=== PATIENT | female | born 1950 | race Caucasian/White ===

== ENCOUNTER → 2023-06-28 10:25 | Outpatient (REF) | payer OTHER, SELFPAY | LOC: RAD 10:25 | PROVIDERS: ATTENDING PHYSICIAN Urology; FAMILY PHYSICIAN Physician Assistant | DX: N20.0 Calculus of kidney (principal); R10.9 Unspecified abdominal pain | CPT/HCPCS: 74176 ==

== ENCOUNTER 2024-09-24 06:08 | Day surgery (SDC) | payer OTHER, SELFPAY ==
[2024-09-24] VITALS (11 sets, daily range): BP systolic 119–156; BP diastolic 64–87; BMI 34.9
[2024-09-24] MEDS: LOW STRENGTH ASPIRIN 324 MG PO (06:54)
[2024-09-24 07:00] LABS: Hematocrit 37.9 % (37.0-47.0); Hemoglobin 12.5 g/dL (12.0-16.0); Mean Corp Hgb Conc. 33.0 g/dL (33.0-37.0); Mean Corpuscular Volume 92.2 fL (81.0-99.0); Platelet Count 195 10^3/uL (130-400); Red Cell Dist. Width 13.0 % (11.5-14.5)
[2024-09-24 07:34] LABS: Blood Urea Nitrogen 16 mg/dl (7-17); Calcium 9.2 mg/dl (8.4-10.2); Carbon Dioxide 26 mmol/L (22-30); Chloride 109 mmol/L (98-107); Estimated Creatinine Clearance 84 ml/min; Glucose 118 mg/dl (70-99); Potassium 4.6 mmol/L (3.5-5.1); Sodium 141 mmol/L (135-145); eGFR > 60.00
--- NOTE | 2024-09-24 08:05 | ITS.CL.CATH ---
Digital Analyst - Catheterization
Cardiac Catheterization
Procedure Report:
LEFT HEART CATHETERIZATION
Date of Procedure: September 24, 2024
Procedures performed:
1: Coronary angiography
Primary Care Physician: Barbara Kennedy PA-C
Primary Pants Presser Automatic: Dr. Moi Lee
INDICATION: The patient is a 74-year-old woman who is referred for coronary angiography in preparation for aortic valve intervention in the setting of severe symptomatic aortic stenosis.
ACCESS: The patient was prepped and draped in usual sterile fashion. A 6 Japanese sheath was placed in the right radial artery using the Seldinger over the wire technique.
HEMODYNAMIC FINDINGS (mmHg):
LV(s/d,EDP): Valve not crossed
Ao(s/d,m): 140/84, 107
ANGIOGRAPHIC FINDINGS:
Single-plane Left Ventriculography in THOMAS Projection: Valve not crossed.
Coronary Angiography:
Dominance: Codominant
Left Main: Normal
Left Anterior Descending: Large-caliber vessel that gives rise to 2 major diagonal branches. Vessels are widely patent without focal disease.
Left Circumflex: The left circumflex is a large-caliber vessel that gives rise to 2 large caliber obtuse marginal branches and terminates in a somewhat diminutive vessel that is in the posterior descending artery territory. All vessels are widely
patent without focal disease.
Right Coronary: Medium caliber vessel that is widely patent and gives a somewhat diminutive posterior descending artery. No focal disease with normal flow.
Fluoroscopy Time (min): 3.9
Radiation Dose (mGy): 311
DAP (Gy.cm2): 17
Closure device: None. A TR band was applied for hemostasis at the right wrist.
Complications: None.
ASSESSMENT:
1: Normal coronary arteries.
CONCLUSIONS and RECOMMENDATIONS:
1: Proceed with TAVR evaluation.
Lady Jordan M.D.
Copy to: Barbara Kennedy PA-C
--- NOTE | 2024-09-24 08:35 | CONSULT.STRU ---
Consultation
-
Date/Time Consultation Requested: 09/24/2024
Date/Time Consultation Performed: 09/24/2024
Requesting Provider: Elieser Jordan MD
Performing Provider: RENALDO Winston
Reason for Consultation: /TAVR
Patient History
Physicians
Family Physician: Barbara Kennedy PA-c
Outpatient Male Impersonator: Moi Lee MD
Primary Male Impersonator: Moi Lee MD
History of Present Illness
Ms. Giles is a very pleasant 74 yof with a past medical history significant for , HTN, mixed hyperlipidemia, and hypothyroid. Her most recent echocardiogram from 07/23/2024 is notable for EF 60-65%, AV P/M 92/58, HERI 0.83, Di 0.28, Pk velocity
4.79, mild AI, mild MAC, trace MR, RVSP 20.8. Cardiac catheterization from 09/24/2024 demonstrated normal coronary arteries. From a symptomatology standpoint, patient describes MAGANA, fatigue, and LE edema. She states her symptoms have become more
noticeable starting this past spring. Discussed the pathophysiology and treatment options of including SAVR and TAVR. Explained the evaluation process comprising of CT scan, dental clearance, CT surgical consult, and a heart team discussion. TAVR
booklet, prescriptions, contact information, and appointments given to patient. Allowed for and answered questions at bedside.
Past Medical History
Past Medical History: Asthma, HTN, Hypothyroidism, Valvular Disease (Aortic Stenosis) and Other (mixed hyperlipidemia, CKD, OA, osteopenia, )
Past Surgical History
Past Surgical History: Tonsilectomy
Dental History
Dr. Jones- Patient states she is UTD
Family History
Mother: N/A
Father: Cause of (CAD)
Social History
Alcohol: Occasional (several times per week)
Drug: None
Tobacco: Former Smoker
Living: With Family
Allergies
Allergy/AdvReac Type Severity Reaction Status Date / Time
Latex, Natural Rubber Allergy Mild Rash Verified 09/24/24 06:32
erythromycin base Allergy GI Issues Verified 09/24/24 06:32
lisinopril Allergy CITLALLI Cough Verified 09/24/24 06:32
Sulfa (Sulfonamide Allergy Rash Verified 09/24/24 06:32
Antibiotics)
Environmental Allergy Nasal Uncoded 06/23/21 09:18
Congestion
Sunlight Allergy Rash, Uncoded 06/23/21 09:18
Congestion
Home Medications
�Medication �Instructions �Recorded �Confirmed �Type
albuterol sulfate 90 mcg/actuation 2 puff inhalation PRN PRN SOB, 06/21/21 09/24/24 History
aerosol inhaler Cough
amlodipine 5 mg tablet (Norvasc) 7.5 mg PO HS 06/21/21 09/24/24 History
ascorbic acid (vitamin C) 500 mg 1,000 mg PO DAILY 06/21/21 09/24/24 History
tablet (Vitamin C)
cholecalciferol (vitamin D3) 125 5,000 unit PO DAILY 06/21/21 09/24/24 History
mcg (5,000 unit) disintegrating
tablet
coenzyme [id number] E 100 mg-100 300 mg PO DAILY 06/21/21 09/24/24 History
unit capsule
cyanocobalamin (vitamin B-12) 2,500 mcg PO DAILY 06/21/21 09/24/24 History
2,500 mcg tablet
fexofenadine 180 mg tablet 180 mg PO PRN PRN allergy Symptoms 06/21/21 09/24/24 History
(Hellen)
fluticasone propionate 50 2 spray intranasal PRN PRN 06/21/21 09/24/24 History
mcg/actuation nasal allergies
spray,suspension
levothyroxine 125 mcg tablet 125 mcg PO DAILY AT 0700 06/21/21 09/24/24 History
losartan 100 mg tablet (Cozaar) 100 mg PO HS 06/21/21 09/24/24 History
magnesium oxide 400 mg PO DAILY 06/21/21 09/24/24 History
melatonin 10 mg tablet 5 - 10 mg PO PRN PRN insomnia 06/21/21 09/24/24 History
meloxicam 15 mg tablet 15 mg PO PRN PRN pain 06/21/21 09/24/24 History
metoprolol succinate 50 mg 50 mg PO HS 06/21/21 09/24/24 History
tablet,extended release 24 hr
(Toprol XL)
rosuvastatin 5 mg tablet 5 mg PO HS 06/21/21 09/24/24 History
sertraline 50 mg tablet 50 mg PO DAILY 06/21/21 09/24/24 History
zinc 50 mg tablet 50 mg PO DAILY 06/21/21 09/24/24 History
STS%
STS %: 1.73
Review of Systems
-
History Source: Patient and Family
General: Reports Fatigue
HEENT: Reports No Symptoms
Respiratory: Reports Other (MAGANA)
Cardiac: Reports No Symptoms
Abdomen/GI: Reports No Symptoms
: Reports No Symptoms
Musculoskeletal: Reports Joint Pain
Skin: Reports No Symptoms
Neurological: Reports No Symptoms
Vascular: Reports No Symptoms
Physical Exam
Vital Signs
Temp 98.5 F 09/24/24 06:44
Temp route: Oral 09/24/24 06:36
Pulse 60 09/24/24 08:00
Resp Rate 19 09/24/24 08:00
Blood pressure 135/80 09/24/24 08:00
Blood pressure extremity used: Left upper arm 09/24/24 08:08
Position: Lying 09/24/24 08:08
MAP (cuff-Yomi Monitor) 97 09/24/24 08:00
SaO2 95 09/24/24 08:00
Oxygen Mode of Delivery Room air 09/24/24 08:08
Can the patient verbally communicate their pain? Yes 09/24/24 08:08
Actual Weight 96.5 kg 09/24/24 06:46
Body Mass Index (BMI) 34.9 09/24/24 06:46
Labs
09/24/24 06:52
09/24/24 06:52
Diagnostic Studies
Procedure Type:�Isolated AVR
Perioperative Outcome Estimate %
Operative Mortality 1.73%
Morbidity & Mortality 5.91%
Stroke 0.825%
Renal Failure 0.806%
Reoperation 2.65%
Prolonged Ventilation 2.77%
Deep Sternal Wound Infection 0.097%
Long Hospital Stay (>14 days) 2.8%
Short Hospital Stay (<6 days)* 56.2%
CARDIAC CATHETERIZATION 09/24/2024
Dominance: Codominant
Left Main: Normal
Left Anterior Descending: Large-caliber vessel that gives rise to 2 major diagonal branches. Vessels are widely patent without focal disease.
Left Circumflex: The left circumflex is a large-caliber vessel that gives rise to 2 large caliber obtuse marginal branches and terminates in a somewhat diminutive vessel that is in the posterior descending artery territory. All vessels are widely
patent without focal disease.
Right Coronary: Medium caliber vessel that is widely patent and gives a somewhat diminutive posterior descending artery. No focal disease with normal flow.
ECHOCARDIOCARDIOGRAM 07/23/2024
SUMMARY
1. Normal left ventricular systolic function without distinct regional wall motion abnormalities.
2. Left ventricular ejection fraction, by visual estimation, is 60 to 65%.
3. Moderate concentric left ventricular hypertrophy.
4. Normal LV diastolic function.
5. The left atrium is normal in by volume index 27.6 mL/m2.
6. Normal right ventricular size and systolic function.
7. Aortic valve is tricuspid and calcified. Severe aortic stenosis. Mild Regurgitation.
8. AoV velocity of 4.79 m/s; Peak aortic valve gradient = 91.8 mmHg; Mean gradient = 58.0 mmHg; AoV Area by continuity equation = 0.83 cm2; AoV Dimensionless Index = 0.28.
9. Mild mitral annular calcification.
10. Right atrial pressure of (3 mmHg), the estimated right ventricular systolic pressure is normal at (20.8 mmHg).
11. Study done in Normal sinus rhythm.
12. Compared to prior study 01/28/2024, aortic stenosis gradients have increased.
Exam
General: Well Developed, Well Nourished and No Apparent Distress
HEENT: Normocephalic
Respiratory: Clear
Cardiac: Regular Rhythm and Murmur (IV/ CARLEE)
GI: Soft
Rectal: Deferred by Provider
Skin: Warm and Dry
Neuro: Awake, Alert and Oriented
Extremities: Lower Level Edema
Psych: Calm
Assessment / Plan
-
Aortic Stenosis
continue TAVR evaluation
Initiate aspirin prior to TAVR
Trend creatinine after contrast
TAVR CT scan
CT surgical consult
Frailty testing and Kccq12 at Consult
Dental clearance
Heart team discussion
Data Reviewed
-
EKG: Tracing Personally Visualized and interpreted (NSR)
Fur Stylist: Report Reviewed by me and Discussed with Physician
Echo: Report Reviewed by me and Discussed with Physician
Labs: Labs Reviewed by me
Old Records: Reviewed
Total Time Spent with Patient (in minutes): 45
== END 2024-09-24 11:05 | disposition home or self-care (01) ==
LOC: CATH 06:08
PROVIDERS: ATTENDING PHYSICIAN Internal Medicine Interventional Cardiology; FAMILY PHYSICIAN Physician Assistant; REFERRING PHYSICIAN Internal Medicine Cardiovascular Disease
DX: I35.0 Nonrheumatic aortic (valve) stenosis (principal); I12.9 Hypertensive chronic kidney disease with stage 1 through stage 4 chronic kidney disease, or unspecified chronic kidney disease; E03.9 Hypothyroidism, unspecified; E78.2 Mixed hyperlipidemia; I08.0 Rheumatic disorders of both mitral and aortic valves; I49.1 Atrial premature depolarization; M85.80 Other specified disorders of bone density and structure, unspecified site; N18.9 Chronic kidney disease, unspecified; Z79.890 Hormone replacement therapy; Z88.1 Allergy status to other antibiotic agents; Z88.2 Allergy status to sulfonamides; Z88.8 Allergy status to other drugs, medicaments and biological substances; Z91.040 Latex allergy status; Z87.891 Personal history of nicotine dependence; Z82.49 Family history of ischemic heart disease and other diseases of the circulatory system
CPT/HCPCS: 80048; 85027; 93005; 93458; C1769; C1894; Q9967

== ENCOUNTER → 2024-10-06 09:23 | Outpatient (REF) | payer OTHER, SELFPAY | LOC: RAD 09:23 | PROVIDERS: ATTENDING PHYSICIAN Nurse Practitioner Acute Care; FAMILY PHYSICIAN Physician Assistant | DX: I35.0 Nonrheumatic aortic (valve) stenosis (principal) | CPT/HCPCS: 74174; 75572; Q9967 ==

== ENCOUNTER 2024-11-26 05:16 | Inpatient (IN) | payer OTHER, MEDICARE, SELFPAY ==
[2024-11-12 12:19] VITALS: BMI 34.4
[2024-11-12 13:03] LABS: Hematocrit 39.1 % (37.0-47.0); Hemoglobin 12.7 g/dL (12.0-16.0); Mean Corp Hgb Conc. 32.5 g/dL (33.0-37.0); Mean Corpuscular Volume 92.9 fL (81.0-99.0); Nucleated Red Blood Cells % 0 %; Platelet Count 256 10^3/uL (130-400); Red Cell Dist. Width 13.0 % (11.5-14.5)
[2024-11-12 13:05] LABS: Urine Character Clear (Clear)
[2024-11-12 13:12] LABS: INR 0.91; PT 12.8 Sec (11.4-14.6)
[2024-11-12 13:42] LABS: ALT (SGPT) 16 U/L (0-35); AST (SGOT) 19 U/L (14-36); Albumin 5.0 g/dl (3.5-5.0); Alkaline Phosphatase 47 U/L (38-126); Blood Urea Nitrogen 18 mg/dl (7-17); Calcium 10.1 mg/dl (8.4-10.2); Carbon Dioxide 28 mmol/L (22-30); Chloride 102 mmol/L (98-107); Estimated Creatinine Clearance 82 ml/min; Glucose 97 mg/dl (70-99); Potassium 4.4 mmol/L (3.5-5.1); Sodium 138 mmol/L (135-145); Total Protein 8.1 g/dl (6.3-8.2); eGFR > 60.00
[2024-11-12 14:06] LABS: Glycohemoglobin (HgbA1c) 5.0 % (4.0-5.6)
--- NOTE | 2024-11-12 14:58 | CM ---
spoke to pt in PAT's, we discussed pre op AVR instructions including sternal and driving restrictions. kiki faulkner, lives with her daughter and 2 grand kids 14 and 8. she has a first floor set up and 4 steps to enter. she has the cardiac
surgery book, soap and in structions. she is agreeable to a f/u visit from the ct transitional care nurse after dc. cm role explained jp all questions answered. plan is for AVR 11/26/24.
[2024-11-26] VITALS (14 sets, daily range): BP systolic 75–157; BP diastolic 46–94; BMI 33.9
[2024-11-26] MEDS: PROTONIX 40 MG PO (05:52)
[2024-11-26] MEDS: LOPRESSOR 25 MG PO (05:52)
[2024-11-26] MEDS: MAGNESIUM OXIDE 400 MG PO (05:52)
[2024-11-26] MEDS: BACTROBAN 2% OINTMENT 1 APPLIC NASAL ×2 (05:52→20:03)
--- NOTE | 2024-11-26 06:11 | W.CVOR.SURPR ---
CVOR Surgeon Immed Pre Op
-
I have examined this patient prior to performance of the scheduled procedure.
The patient's condition is unchanged from the time of the dictated/written History and
Physical and the patient is able to undergo the scheduled procedure.
Sternotomy AVR with root enlargement possible root replacement
[2024-11-26] MEDS: NON-FORMULARY ITEM 1 UNIT PO (06:37)
--- NOTE | 2024-11-26 07:00 | PTCARENOTE ---
Pt admitted to room 2265. Pt changed into gown. Pt confirmed 2 showers at home and NPO status. VS and weight obtained. ABO drawn and sent. Admission questions completed. Home medications confirmed. Pt taking amoxicillin at home for root canal. Home
Amoxicillin brought in and sent to pharmacy and dose administered this morning (see MAR). Pt also taking Prevagen 10mg and Osteo Bi-Flex regular strength. Unable to add these medications to the med list in [facility]. Pt confirmed that their last dose
of both of these medications was 11/18/2024. Pt w/ a healing bruise/ laceration to their left lower leg from bumping it on a table. Pt family at the bedside. Questions answered and pt oriented to room. Plan of care explained for the morning and call
harrington within reach.
[2024-11-26 07:40] LABS: ACT+ - POC 104 Seconds (82-134)
[2024-11-26 08:05] LABS: Urine Character Clear (Clear)
[2024-11-26 08:36] LABS: ACT+ - POC 974 Seconds (82-134)
[2024-11-26 09:04] LABS: ACT+ - POC 771 Seconds (82-134)
[2024-11-26 09:23] LABS: B.E. - POC 1.9 mmol/L; Glucose - POC 113 mg/dl (70-99); HCO3 - POC 26 mmol/L (21-28); Hematocrit - POC 31 % PCV (37-47); Hemodilution- POC No; Hemoglobin Calculated - POC 10.4; Ionized Calcium - POC 1.17 mmol/L (1.15-1.33); Lactate - POC < 0.30 mmol/L (0.36-0.75); O2 Saturation %Calculated-POC 100.0 % (94-98); PCO2 - POC 39 mmHg (35-48); PO2 - POC 394 mmHg (83-108); POC Comment PRE; Potassium - POC 3.4 mmol/L (3.5-5.1); Sodium - POC 142 mmol/L (136-145); Specimen Type - POC Arterial; pH - POC 7.44 (7.35-7.45)
[2024-11-26 09:35] LABS: ACT+ - POC 594 Seconds (82-134)
[2024-11-26 09:49] LABS: B.E. - POC 4.2 mmol/L; Glucose - POC 155 mg/dl (70-99); HCO3 - POC 28 mmol/L (21-28); Hematocrit - POC 27 % PCV (37-47); Hemodilution- POC Yes; Hemoglobin Calculated - POC 9.3; Ionized Calcium - POC 1.05 mmol/L (1.15-1.33); Lactate - POC 0.90 mmol/L (0.36-0.75); O2 Saturation %Calculated-POC 99.9 % (94-98); PCO2 - POC 37 mmHg (35-48); PO2 - POC 271 mmHg (83-108); POC Comment WARM; Potassium - POC 3.5 mmol/L (3.5-5.1); Sodium - POC 143 mmol/L (136-145); Specimen Type - POC Arterial; pH - POC 7.49 (7.35-7.45)
[2024-11-26 09:59] LABS: ACT+ - POC 529 Seconds (82-134)
[2024-11-26 10:14] LABS: B.E. - POC 2.8 mmol/L; Glucose - POC 143 mg/dl (70-99); HCO3 - POC 27 mmol/L (21-28); Hematocrit - POC 26 % PCV (37-47); Hemodilution- POC Yes; Hemoglobin Calculated - POC 9.0; Ionized Calcium - POC 1.04 mmol/L (1.15-1.33); Lactate - POC 1.58 mmol/L (0.36-0.75); O2 Saturation %Calculated-POC 99.9 % (94-98); PCO2 - POC 41 mmHg (35-48); PO2 - POC 315 mmHg (83-108); POC Comment WARM; Potassium - POC 4.2 mmol/L (3.5-5.1); Sodium - POC 145 mmol/L (136-145); Specimen Type - POC Arterial; pH - POC 7.44 (7.35-7.45)
[2024-11-26 10:20] LABS: ACT+ - POC 137 Seconds (82-134)
--- NOTE | 2024-11-26 10:42 | W.PN.CT.SURG ---
CT Surgery Operative Note
-
CARDIAC SURGERY OPERATIVE REPORT
Preoperative Diagnosis: Aortic valve stenosis with mild insufficiency and small sinuses and small annulus
Postoperative Diagnosis: Same
Procedure(s) Performed:
1. Standard sternotomy with aortic and right atrial cannulation
2. Surgical aortic valve replacement [23 mm bioprosthesis]
3. Aortic root enlargement with aortoplasty, Nicks De La Garza type enlargement onto the anterior leaflet the mitral valve using a bovine pericardial patch
4. Placement temporary ventricular pacing wire
5. Transesophageal cardiography
Date of Surgery: 11/26/2024
Comorbidities:
1. Severe aortic valve stenosis with mild insufficiency
2. Moderate to severe left ventricular hypertrophy, chronic diastolic dysfunction
3. Small aortic valve annulus and small sinuses
4. Hypertension
5. Hyperlipidemia
6. Anxiety/depression
7. Osteopenia
8. Obese with BMI of 33.9
Attending Surgeon: Rafa Barragan MD, MS
Assistants: Rafa Harrison PA-C (present and necessary to first mate, retraction, suction, exposure, suture management, and wound closure under my direction), Carolynn Stern MD (Cardiac Surgery Attending, did portions of the patch and annular
sutures), Cedric Becker MD (PGY 2, Cardiac Surgery Resident)
Anesthesiology: Darci Conti MD and Kristie Mcnulty CRNA
Scrub and Circulating RNs: Polo Mcclelland RN, Miriam Betancourt RN
Duplicate Maker: Eduar Mario CCP and Marybeth Osborn CCP
Anesthesia: GETA
EBL: per perfusion records
Products: None
CPB Time: 97 minutes
Aortic Cross Clamp Time: 77 minutes
Indication(s) for Procedures: This is a 74-year-old female who is functional at baseline. She was initially referred for TAVR of her [employer] and our in-house radiology measurements demonstrate a small annulus with effaced sinuses. Her
coronary heights were acceptable. Multidiscipline team discussion came up with the overall consensus that she would likely to be a 2 valve strategy and given her small root, she was referred back to surgery for possible aortic root intervention set
up for the next procedure.
Aortic Valve Description: Tricuspid leaflet with heavy calcification that extended from the body of the leaflet into the annulus particularly towards the right and left coronary cusp. The left and right coronary ostia they are within normal
anatomic positions. Her LVOT was actually quite small on JOAQUÍN preoperatively. There was some septal prominence. The sinuses were also somewhat calcified towards the noncoronary side.
Findings: Her left ventricular ejection fraction preoperatively was 65% with no significant regional wall motion abnormalities. Following surgery EF remained the same if not hyperdynamic to 70% with some obliteration of her LV cavity. She had a
small LVOT with some septal prominence that was concerning for possible CEDRIC physiology in the future. Because of this I opted not to aggressively oversized her valve. I performed root enlargement by cutting down through the left noncoronary
commissure onto the annulus of the mitral valve after freeing off the dome and the left atrium. A teardrop shaped bovine pericardial patch was then fashioned and sutured down to the mitral valve leaflet and up along the side of each sinus. A total
of sixteen 2-0 Ethibond sutures were placed circumferentially to form the don-annulus. Along the patch I went from outside to inside using pledgeted 2-0 Ethibond sutures. A total of 5 were used here. This anchored in a 23 mm bioprosthesis using
core knots. After coming off of cardiopulmonary bypass there was initially a small paravalvular leak that was trace to mild that was emanating from the right coronary cusp side along the calcified septal portion of the annulus. This improved with
protamine to trace and there is no significant drop in her diastolic blood pressure. There is no CEDRIC after the case and her EF again was hyperdynamic with obliteration of the left ventricular cavity. Given her lack of A-fib and low [id number]
score, I opted not to intervene on her left atrial appendage as it was quite small to begin with. She did not require any blood products, she did not require any inotropic support, and she was in her hoh sinus rhythm after short period of
ventricular pacing. Mean gradient across her aortic valve while she was hyperdynamic was 12 mmHg.
Specimen(s): Aortic valve leaflets.
Prosthesis: 23 mm Dorsey Inspiris Resilia aortic valve, serial #[id number], bovine pericardial patch, serial number [id number].
Description of Procedure: The patient was taken to the operating room. Their identity and procedure to be performed were verified and they were positioned supine on the operating table. Induction via general anesthesia with endotracheal intubation
was performed and central venous access and arterial monitoring were inserted. A preoperative transesophageal echocardiogram was performed to assess cardiac function and valvular function. The patient was then prepped and draped from chin to feet in
a sterile fashion. A preoperative time-out was performed with all members of the team present. A midline chest incision was performed along with median sternotomy. The innominate vein was isolated. Full heparinization was given (a total of 60,000
units). We created a pericardial well. The aortic cannulation site was chosen where it was soft, pliable, and free of calcium. Cannulation was performed with an arterial cannula in the ascending aorta and a triple-stage venous cannula through the
right atrial appendage. The arterial cannula line had an appropriate bounce and correlating pressures with test dosing. Next, a root vent/antegrade cannula was inserted into the ascending aorta. The ACT was confirmed to be over 400 and retrograde
autologous priming was performed before commencing cardiopulmonary bypass. The pulmonary artery was away from the aorta to facilitate a clamp site and aortotomy. A left ventricular vent was placed at the right superior pulmonary vein and
secured. The aortic cross-clamp was placed after decreasing the flow on the bypass and mean arterial pressure. A total of 1.2L initial dose of antegrade Del-Nido cardioplegia solution was given and planned for re-dosing every 75 minutes as
necessary. There was rapid electro-mechanical arrest of the heart at 400 cc of cardioplegia. The left ventricle was observed for distention on echocardiogram and manual palpation. Cold slush was placed into a sponge and topically on the RV while we
systemically cooled to 34 degrees centigrade.
Carbon dioxide was used to flood the field. We manually identified the location of the right coronary take off. An aortotomy was made approximately 2cm above the sinotubular junction. The location of both left and right coronary vessels were
visualized in the root.The leaflets were excised and sent for pathological assessment. The annulus was debrided of any calcium being mindful of the annulus and membranous septum. The root and left ventricular outflow tract were thoroughly irrigated
to remove any debris. A 23 mm sizer then inserted into the root and found to be quite small. I then carried the aortotomy down towards the left noncommissure onto the Corinna of the mitral valve after freeing up the dome of the left atrium on the
aortic root. A large bovine pericardial tear shaped patch was then fashioned and sutured here with 4-0 Prolene with multiple reinforcement sutures along the base. A total of 11 Non-pledgeted and 5 pledgeted 2-0 ethibond (outside of aorta to
inside) inverted annular sutures were placed [id number] circumferentially. These were brought through the sewing cuff of the prosthetic valve which as then parachuted into place. The left and right coronary ostia were visualized and were
unobstructed by the valve. A Cor-Knot device was used to secure the annular sutures. The valve was inspected and was well seated. Additional cardioplegia was then given in the left main. I then continued the aortoplasty by carrying the patch up
along the lateral and anterior surface of the aorta. This was done with 4-0 Prolene on each side imbricating the patch onto the inside of the aorta. Absorbable hemostatic agent was then injected over top of the suture line. De-airing maneuvers
were performed and temporary bipolar ventricular pacing wires were placed on the base of the right ventricle. The patient was placed in a Trendelenburg position and flows on bypass were lowered. The aortic cross clamp was removed and flows were
slowly brought back up. The aortotomy appeared hemostatic. Transesophageal echocardiography revealed no paravalvular leak and appropriate prosthetic function. Once de-airing was satisfactory, the left ventricular and root vents were removed. After
verifying acceptable parameters, we initiated weaning from cardiopulmonary bypass. Once we were off cardiopulmonary bypass, the venous cannula was clamped and removed. A test dose of protamine was administered and the patient was monitored for any
adverse reaction before resuming protamine. Once half of the protamine dose was delivered, pump suckers were turned off and the systolic blood pressure was lowered for aortic decannulation. 2 repair sutures were placed along the patch anteriorly.
The aortic cannula was removed and pursestrings were tied down. All cannulation sites were oversewn with a 4-0 prolene. The aortotomy suture line was inspected and hemostasis was confirmed. Mediastinal hemostasis was obtained. Two 24Fr Xiang drains
were placed within the pericardium. The sternum was approximated with 4#7 single and 3 #8 double stainless steel wires. Fascia was approximated with #1 vicryl suture. The subcutaneous, dermis and epidermis were closed in layers in a running fashion.
The skin wound was cleansed and dressed.
All instrument, sponge, and needle counts were confirmed to be correct x 2 at the end of the operation. The patient was transferred to the cardiac intensive care unit in critical but stable condition.
I, Dr. Rafa Barragan, was present, scrubbed for, and performed all critical elements of this procedure.
Rafa Barragan MD, MS
Cardiothoracic Surgeon
[facility]
This operative dictation was created using the Gra[employer] dictation system. Please excuse any grammatical, typographical, or 'sound alike' errors
--- NOTE | 2024-11-26 10:54 | CON.INTV ---
Consultation
Consultation Request
Date/Time Consultation Requested: 11/26/2024 - 1029
Date/Time Consultation Performed: 11/26/2024 - 1049
Requesting Provider: RENALDO Mann
Performing Provider: Dr. Kaur
Reason for Consultation: SAVR + aortoplasty
Medical History
-
Chief Complaint: Elective SAVR
History of Present Illness:
74-year-old female with a past medical history of nonrheumatic aortic valve stenosis, hypertension, hypothyroidism, anxiety/depression, CKD, mild intermittent asthma and history of kidney stones who presents for elective aortic valve replacement.
Patient known to the cardiothoracic surgery service, with visit on 11/03/[address] Barragan. Patient had a CT TAVR on 10/06/2024 showing a small annular size. She has been more short of breath going up stairs and fatigued. The symptoms have been
worsening over the month prior to this office visit. Surgical intervention was discussed and she consented. Today she underwent a surgical aortic valve replacement with a 23 mm bioprosthesis, as well as aortic root enlargement with aortoplasty.
There were no complications and she was transferred to the CVICU postoperatively with [employer] services consulted for additional management/recommendations.
When I saw the patient she was intubated on SIMV at 14/550/40%/5 with PIP 24 cmH2O, VTe 483 cc and breathing at 14 breaths/min. Heart rate 58, BP via right radial A-line: 96/51, PAP 28/18, BP via NIBP: 81/50, CO/CI: 3.58/1.8, respectively, and
saturating 98%. Currently on insulin drip at 2 units/hr. Mediastinal chest tubes x [address]
PMHx: Aortic valve stenosis, hypertension, hypothyroidism, anxiety, depression, osteoarthritis, asthma, CKD, history of kidney stones, basal cell carcinoma s/p Mohs (04/2019)
PSHx: Mohs procedure, cataract removal, tonsillectomy
Past Medical History
Past Medical History: Other (Above as per HPI)
Past Surgical History: Other (Above as per HPI)
Social History
Tobacco: Former Smoker (Quit 30 years ago)
Alcohol: None
Drug: None
Family History
Family History: CAD (Father + paternal grandfather)
Allergies / Home Medications
Allergies
Allergy/AdvReac Type Severity Reaction Status Date / Time
Latex, Natural Rubber Allergy Mild Rash Verified 11/11/24 12:34
erythromycin base Allergy GI Issues Verified 11/11/24 12:34
lisinopril Allergy CITLALLI Cough Verified 11/11/24 12:34
Sulfa (Sulfonamide Allergy Rash Verified 11/11/24 12:34
Antibiotics)
Environmental Allergy Nasal Uncoded 11/11/24 12:34
Congestion
Sunlight Allergy Rash, Uncoded 11/11/24 12:34
Congestion
Home Medications
�Medication �Instructions �Recorded �Confirmed �Last Taken �Type
albuterol sulfate 90 mcg/actuation 2 puff inhalation PRN PRN SOB, 06/21/21 11/26/24 11/03/24 History
aerosol inhaler Cough
amlodipine 5 mg tablet (Norvasc) 7.5 mg PO HS 06/21/21 11/26/24 11/23/24 20:00 History
ascorbic acid (vitamin C) 500 mg 500 mg PO DAILY 06/21/21 11/26/24 11/18/24 07:00 History
tablet (Vitamin C)
fluticasone propionate 50 2 spray intranasal PRN PRN 06/21/21 11/26/24 11/21/24 History
mcg/actuation nasal allergies
spray,suspension
levothyroxine 125 mcg tablet 125 mcg PO DAILY AT 0700 06/21/21 11/26/24 11/25/24 07:00 History
losartan 100 mg tablet (Cozaar) 100 mg PO HS 06/21/21 11/26/24 11/23/24 21:00 History
melatonin 10 mg tablet 5 - 10 mg PO PRN PRN insomnia 06/21/21 11/26/24 11/24/24 21:00 History
meloxicam 15 mg tablet 15 mg PO PRN PRN pain 06/21/21 11/26/24 11/21/24 History
metoprolol succinate 50 mg 50 mg PO HS 06/21/21 11/26/24 11/25/24 21:00 History
tablet,extended release 24 hr
(Toprol XL)
rosuvastatin 5 mg tablet 5 mg PO HS 06/21/21 11/26/24 11/25/24 21:00 History
sertraline 50 mg tablet 50 mg PO DAILY 06/21/21 11/26/24 11/25/24 07:00 History
acetaminophen 500 mg tablet 1,000 mg PO Q6H PRN pain 11/11/24 11/11/24 Unknown History
(Tylenol Extra Strength)
alendronate 70 mg tablet 70 mg PO QWEEK 11/11/24 11/26/24 11/23/24 History
calcium carbonate (Calcium 600) 600 mg PO BID 11/11/24 11/26/24 11/25/24 21:00 History
fexofenadine 180 mg tablet 180 mg PO PRN PRN sneezing, nasal 11/11/24 11/26/24 11/25/24 07:00 History
congestion
ibuprofen 200 mg tablet 400 mg PO Q6H PRN pain 11/11/24 11/11/24 Unknown History
amoxicillin 875 mg tablet 875 mg PO BID 11/26/24 11/26/24 11/25/24 21:00 History
Review of Systems
-
Unable to Obtain full review of systems at this time due to: Patient Intubation
Vitals / Labs / Diagnostic Testing
Vital Signs
Temp Pulse Resp BP Pulse Ox
98.8 F 74 19 93/61 98
11/26/24 20:18 11/26/24 19:15 11/26/24 20:18 11/26/24 19:00 11/26/24 20:18
Lab Data
11/26/24 15:02
11/26/24 11:15
Laboratory Results
11/26/24
11:15
PT 19.5 H
INR 1.60
APTT 32.6
pH 7.41
pCO2 36 H
pO2 158 H
HCO3 22.8
O2 Delivery Level
Diagnostic Testing:
Physical Exam
-
HEENT: Normocephalic, Anicteric and Other (ETT in place)
Cardiovascular: S1/S2 and Peripheral Edema (negative)
Respiratory: Wheeze (negative), Rales (negative), Rhonchi (negative), Non-Labored Respirations, Other (Mechanical breath sounds heard bilaterally) and Other (Mediastinal chest tubes x 2)
GI: Soft, Non Distended, Non Tender and Normal Bowel Sounds
Neurology: Tremors (negative) and Other (Sedated)
Skin: Warm and Dry
General: Respiratory Distress (negative), Comfortable, Fever (negative) and Chills (negative)
Assessment
-
Assessment: 74-year-old female with a past medical history of nonrheumatic aortic valve stenosis, hypertension, hypothyroidism, anxiety/depression, CKD, mild intermittent asthma and history of kidney stones who presents for elective aortic valve
replacement. Patient known to the cardiothoracic surgery service, with visit on 11/03/[address] Barragan. Patient had a CT TAVR on 10/06/2024 showing a small annular size. She has been more short of breath going up stairs and fatigued. The
symptoms have been worsening over the month prior to this office visit. Surgical intervention was discussed and she consented. On 11/26/2024, she underwent a surgical aortic valve replacement with a 23 mm bioprosthesis, as well as aortic root
enlargement with aortoplasty. There were no complications and she was transferred to the CVICU postoperatively with [employer] services consulted for additional management/recommendations.
Chronic conditions DUDE WRANGLER: Aortic valve stenosis, hypertension, hypothyroidism, anxiety, depression, osteoarthritis, asthma, CKD, history of kidney stones, basal cell carcinoma s/p Mohs (04/2019)
Impression:
#Aortic valve stenosis with mild insufficiency and small sinuses/small annulus s/p surgical aortic valve replacement (23 mm bioprosthesis) + aortic root enlargement with aortoplasty - POD #0
#Acute anemia due to above
#Acute thrombocytopenia due to above
#Moderate�severe LVH
#Hypertension
#Hyperlipidemia
#Anxiety/depression
#Osteopenia
#Stable 8mm pulmonary nodule within the lingula and stable 3mm nodule in lateral LLL (stable since CT A/P from 06/01/2021)
#Bibasilar subpleural interstitial fibrosis +/- scarring with focal bronchiectasis in RML and LLL (present since at least 2021)
#Former tobacco smoker
Plan:
Ventilator settings reviewed
FiO2 will be weaned to maintain SpO2 >90-94%
Minute ventilation will be adjusted
Arterial blood gases will be monitored
Spontaneous breathing trial will be attempted with hopeful extubation after anesthesia/sedation wear off
prn nebulized bronchodilators - not currently bronchospastic
Pulmonary artery catheter parameters will be followed
Pressors/antihypertensive/inotropes/diuretics will be provided as needed
Maintain MAP>65
Replete electrolytes with K>4, Mg>2
Monitor chest tube output (mediastinal chest tubes x 2)
Monitor hemoglobin
Monitor platelet count and coags
Transfuse blood products as needed to maintain Hb>7g/dL, plt>50k (given post-operative status)
CT surgery managing chest tubes
Monitor blood sugar to maintain euglycemia with goal BG 110-140
Insulin drip per protocol
Aspiration precautions
VAP prevention protocol
DVT prophylaxis
Early nutrition
Early mobilization
Critical care statement: A total of 37 minutes of critical care time was provided for this patient today. This includes management of ventilator, spontaneous breathing trial, arterial blood gases, pressors, of unstable vital signs, evaluation of the
patient at bedside, reviewing the patient's pertinent medical records including radiographs, microbiology, laboratory evaluations, and discussion with primary team and critical care nursing.
[2024-11-26 11:16] LABS: Glucose - Point of Care 118 mg/dl (70-99)
--- NOTE | 2024-11-26 11:22 | W.PN.UPDATE ---
Update Note
Progress Note Update
74-year-old female was electively admitted on 11/26/2024 for an aortic valve replacement with root enlargement
IV fluids: 1750
U.O.:� 600
Blood:� none
Wires:� bipolar V wire
Drips: Precedex, Insulin
�
NEURO: sedated, pupils +2mm B/L
RESP: #8OT @23cm> 550/40%/14/5. Skin tear center upper lip. Lungs clear B/L. 2 mediastinal (0cc on arrival) chest tubes to -20cm suction. Sanguineous drainage
CV: RRR +S1, S2, no S3, no�rub, no murmur. Dermabond to median sternotomy. RIJ w/Baskin locked @ 47cm. PA 33/19; CVP 14; C.O 4.31/CI 2.17
ABD: round, soft, no BS
EXT: no edema, +2/4 DP pulses B/L, no femoral bruit, right radial A-line intact. Abrasion left calf (present on arrival)
: Moncada with clear yellow urine
�
A/P: POD #0 s/p aortic valve replacement [23 mm bioprosthesis], Aortic root enlargement with aortoplasty, Nicks De La Garza type enlargement onto the anterior leaflet the mitral valve using a bovine pericardial patch
- JOAQUÍN report pending
- wean and extubate
- SBP goal: 90-110mmHg
- will need instruction regarding antibiotic prophylaxis for dental and invasive procedures
- Insulin x 24h (A1C 5.0)
- oral Amiodarone for AF prophylaxis
�
# acute surgical blood loss anemia-expected
- trend CBC
�
# Hypothyroidism
- resume Levothyroxine 125mcg/d when tolerating solids
# HTN
- resume home amlodipine/losartan/metoprolol as BP warrants
�
# Depression
- resume�Sertraline 50mg/d when tolerating solids
# Hyperlipidemia
- resume rosuvastatin 5mg/d when tolerating solids
# Recent root canal
- continue amoxicillin 875mg BID x 7 days per outpatient dental
[2024-11-26] MEDS: NEURONTIN PO ×2 (11:27→15:58)
[2024-11-26] MEDS: DILAUDID 0.5 MG IV (11:27)
[2024-11-26] MEDS: NSS 500 IV (11:27)
[2024-11-26] MEDS: ZOLOFT PO (11:28)
[2024-11-26] MEDS: ANCEF 10 IV ×2 (11:28)
[2024-11-26 11:33] LABS: B.E. -1.6 mmol/L; HCO3 22.8 mmol/L (21-28); O2 Saturation % 99.1 % (94-98); PCO2 36 mmHg (32-35); PO2 158 mmHg (83-108); Potassium 4.0 mMOL/L (3.5-5.1); Sodium 139 mMOL/L (136-145)
--- NOTE | 2024-11-26 11:37 | CM ---
Chart reviewed. Patient is in the OR today. Patient is independent of ADLS, lives with her daughter and grandchildren in a 2 [address], 1st floor set up, 4 ROSINA, 0 DME. Plan is for the patient to return home with CT Transitional RN. CM to follow
--- NOTE | 2024-11-26 11:39 | PTCARENOTE ---
Received pt from [facility] at 1100; pt intubated and sedated; Pupils 2mm equal and reactive; NSR on monitor and VSS; RIJ Cordis, [place] floated to 43, Right A-line and PIV x1; all lines leveled and zeroed; Precedex and Insulin infusing see flow sheet for
details; ETT 8 22 @ Lip; abrasion on upper lip due to intubation; SIMV 550/40%/5/14 97% pulse Ox; lungs diminished; CT x2 to -20 wall suction no air leak and no crepitus noted; hypoactive bowel sounds; Moncada catheter draining clear yellow urine;
palpable pulses throughout; no edema noted; all surgical sites C/D/I; see nursing documentation for further details.
CI 2.17
CO 4.31
SVR 1187
[2024-11-26 11:40] LABS: B.E. - POC 0.6 mmol/L; Glucose - POC 129 mg/dl (70-99); HCO3 - POC 25 mmol/L (21-28); Hematocrit - POC 25 % PCV (37-47); Hemodilution- POC Yes; Hemoglobin Calculated - POC 8.6; Ionized Calcium - POC 1.27 mmol/L (1.15-1.33); Lactate - POC 2.12 mmol/L (0.36-0.75); O2 Saturation %Calculated-POC 100.0 % (94-98); PCO2 - POC 38 mmHg (35-48); PO2 - POC 449 mmHg (83-108); POC Comment POST; Potassium - POC 3.9 mmol/L (3.5-5.1); Sodium - POC 144 mmol/L (136-145); Specimen Type - POC Arterial; pH - POC 7.42 (7.35-7.45)
[2024-11-26 11:43] LABS: INR 1.60; PT 19.5 Sec (11.4-14.6)
--- NOTE | 2024-11-26 11:43 | CON.CAR ---
Addendum entered and electronically signed by Cheikh An MD 11/26/24 16:57:
I saw and examined the patient.
The Meeting Facilitator's note was reviewed and I agree with the note.
Comment: Briefly, 74-year-old woman past medical history of severe aortic stenosis who underwent surgical aortic valve replacement earlier today.
At the time of my evaluation she was resting comfortably in the CVICU
Remained intubated at the time but sedation was weaned off in preparation for extubation and patient was awake and tracking
Hemodynamically stable, not requiring pressor or inotrope support
CVP was reasonable based on invasive hemodynamics
Telemetry reviewed showing sinus rhythm with frequent PACs, would continue to monitor
Discussed with nursing
Original Note:
Consultation
Consultation Request
Date/Time Consultation Performed: 11/26/24
Requesting Provider: Dr. Barragan
Performing Provider: Shirley Mcmullen PA-C for Dr. An
Reason for Consultation: AVR
Medical History
-
Chief Complaint: AVR
History of Present Illness:
Patient is a 74-year-old female followed by [facility] cardiology with past medical history of aortic stenosis, hypertension, hyperlipidemia, hypothyroidism, asthma, history of bilateral knee osteoarthritis who was noted to have progressive symptomatic
severe by echo. Underwent left and right heart cath on 09/24/2024 with nonobstructive CAD. She was initially being considered for TAVR, however given her young age and small annular size with high likelihood of needing second valvular procedure
later in life, ultimately decision was to proceed with SAVR, which she underwent today. Cardiology consulted for routine postoperative management.
PMH:
Severe symptomatic
HTN
HLD
Hypothyroidism
Asthma
OA of B/L knees
Anxiety/depression
Obesity
Past Medical History
Past Medical History: Other (in HPI)
Social History
Tobacco: Former Smoker
Employment: Employed
Family History
Family History: Hypertension and Other (heart disease)
Allergies / Home Medications
Allergy/AdvReac Type Severity Reaction Status Date / Time
Latex, Natural Rubber Allergy Mild Rash Verified 11/11/24 12:34
erythromycin base Allergy GI Issues Verified 11/11/24 12:34
lisinopril Allergy CITLALLI Cough Verified 11/11/24 12:34
Sulfa (Sulfonamide Allergy Rash Verified 11/11/24 12:34
Antibiotics)
Environmental Allergy Nasal Uncoded 11/11/24 12:34
Congestion
Sunlight Allergy Rash, Uncoded 11/11/24 12:34
Congestion
�Medication �Instructions �Recorded �Confirmed �Type
albuterol sulfate 90 mcg/actuation 2 puff inhalation PRN PRN SOB, 06/21/21 11/26/24 History
aerosol inhaler Cough
amlodipine 5 mg tablet (Norvasc) 7.5 mg PO HS 06/21/21 11/26/24 History
ascorbic acid (vitamin C) 500 mg 500 mg PO DAILY 06/21/21 11/26/24 History
tablet (Vitamin C)
fluticasone propionate 50 2 spray intranasal PRN PRN 06/21/21 11/26/24 History
mcg/actuation nasal allergies
spray,suspension
levothyroxine 125 mcg tablet 125 mcg PO DAILY AT 0700 06/21/21 11/26/24 History
losartan 100 mg tablet (Cozaar) 100 mg PO HS 06/21/21 11/26/24 History
melatonin 10 mg tablet 5 - 10 mg PO PRN PRN insomnia 06/21/21 11/26/24 History
meloxicam 15 mg tablet 15 mg PO PRN PRN pain 06/21/21 11/26/24 History
metoprolol succinate 50 mg 50 mg PO HS 06/21/21 11/26/24 History
tablet,extended release 24 hr
(Toprol XL)
rosuvastatin 5 mg tablet 5 mg PO HS 06/21/21 11/26/24 History
sertraline 50 mg tablet 50 mg PO DAILY 06/21/21 11/26/24 History
acetaminophen 500 mg tablet 1,000 mg PO Q6H PRN pain 11/11/24 11/11/24 History
(Tylenol Extra Strength)
alendronate 70 mg tablet 70 mg PO QWEEK 11/11/24 11/26/24 History
calcium carbonate (Calcium 600) 600 mg PO BID 11/11/24 11/26/24 History
fexofenadine 180 mg tablet 180 mg PO PRN PRN sneezing, nasal 11/11/24 11/26/24 History
congestion
ibuprofen 200 mg tablet 400 mg PO Q6H PRN pain 11/11/24 11/11/24 History
amoxicillin 875 mg tablet 875 mg PO BID 11/26/24 11/26/24 History
Review of Systems
-
Unable to obtain full review of systems at this time due to: Patient Intubation
Physical Exam
Vital Signs
Temp Pulse Resp BP Pulse Ox
96.1 F L 64 14 157/88 97
11/26/24 11:16 11/26/24 11:10 11/26/24 11:16 11/26/24 05:25 11/26/24 11:23
Physical Exam
General: No Apparent Distress and Intubated
HEENT: Normocephalic and Moist Mucous Membranes
Respiratory: Clear and Non Labored Respirations
Cardiac: S1/S2 and Regular Rhythm
GI: Soft, Non Tender and Non Distended
Musculoskeletal: No Clubbing, No Cyanosis and No Edema
Skin: Warm, Dry and Other (Sternotomy incision c/d/i. CTs in place)
Neuro: Sedated
Impression / Plan
-
Primary Abstracter: Dr. Lee of [facility]
Assessment:
Severe symptomatic s/p bioprosthetic AVR #23mm and aortic root enlargement with aortoplasty 11/26/24
LVH
Severe symptomatic
HTN
HLD
Hypothyroidism
Asthma
OA of B/L knees
Anxiety/depression
Obesity
ECHO 07/23/2024: EF 60 to 65%, peak/mean gradients 92/58 mmHg with HERI 0.83 cm�, mild AI, mild MAC, trace MR, RVSP 20.8 mmHg
Plan:
-s/p bioprosthetic AVR #23mm and aortic root enlargement with aortoplasty 11/26/24
-remains intubated, sedated
-off pressors. CI 2.17
-EKG SR with inferolateral T wave abnormalities which appear similar to prior EKG from 10/2024 and prolonged QTc. follow post op
-hgb 8.2, plts 114K
-Continue postop care
-Prior to admission was on Norvasc 7.5 mg nightly, Cozaar 100 mg nightly and Toprol 50 mg nightly. Resume postoperatively as able
-Discussed with nursing
Data Reviewed
-
EKG: Tracing Personally Visualized and interpreted
Medical Tests (Nuc Med, Echo etc): Report Reviewed by me
Labs: Labs Reviewed by me
Old Records: Reviewed
[2024-11-26 11:44] LABS: APTT 32.6 Sec (23.4-35.0)
[2024-11-26 11:45] LABS: Hematocrit 24.6 % (37.0-47.0); Hemoglobin 8.2 g/dL (12.0-16.0); Platelet Count 114 10^3/uL (130-400)
[2024-11-26 11:53] LABS: B.E. - POC 6.2 mmol/L; Glucose - POC 164 mg/dl (70-99); HCO3 - POC 31 mmol/L (21-28); Hematocrit - POC 28 % PCV (37-47); Hemodilution- POC Yes; Hemoglobin Calculated - POC 9.4; Ionized Calcium - POC 1.04 mmol/L (1.15-1.33); Lactate - POC < 0.30 mmol/L (0.36-0.75); O2 Saturation %Calculated-POC 100.0 % (94-98); PCO2 - POC 48 mmHg (35-48); PO2 - POC 503 mmHg (83-108); POC Comment CPB; Potassium - POC 4.3 mmol/L (3.5-5.1); Sodium - POC 143 mmol/L (136-145); Specimen Type - POC Arterial; pH - POC 7.43 (7.35-7.45)
[2024-11-26 11:58] LABS: Blood Urea Nitrogen 11 mg/dl (7-17); Estimated Creatinine Clearance 82 ml/min; Glucose 117 mg/dl (70-99); Magnesium 2.8 mg/dl (1.6-2.3)
[2024-11-26 12:05] LABS: Glucose - Point of Care 109 mg/dl (70-99)
--- NOTE | 2024-11-26 12:20 | PTCARENOTE ---
Epicardial V wire set to back up VVI 40/10/2; no pacing noted on monitor and VSS.
[2024-11-26 12:59] LABS: Glucose - Point of Care 107 mg/dl (70-99)
[2024-11-26] MEDS: LR 250 ML IV ×3 (13:12→16:15)
[2024-11-26] MEDS: TYLENOL PO (13:54)
--- NOTE | 2024-11-26 14:46 | PTCARENOTE ---
Respiratory at bedside, pt following commands; pt placed on CPAP.
[2024-11-26] MEDS: ZOFRAN 4 MG IV ×2 (14:55→22:40)
[2024-11-26] MEDS: OFIRMEV 100 IV (14:55)
[2024-11-26 15:06] LABS: B.E. - POC 0.2 mmol/L; Blood Urea Nitrogen - POC 11 mg/dl (3-120); Chloride - POC 109 mmol/L (96-111); Creatinine - POC 0.89 mg/dl (0.3-1.0); Glucose - POC 113 mg/dl (70-99); HCO3 - POC 26 mmol/L (21-28); Hematocrit - POC 26 % PCV (37-47); Hemodilution- POC No; Hemoglobin Calculated - POC 8.7; Ionized Calcium - POC 1.19 mmol/L (1.15-1.33); Lactate - POC 2.29 mmol/L (0.36-0.75); O2 Saturation %Calculated-POC 96.7 % (94-98); PCO2 - POC 47 mmHg (35-48); PO2 - POC 93 mmHg (83-108); Potassium - POC 4.0 mmol/L (3.5-5.1); Sodium - POC 147 mmol/L (136-145); Specimen Type - POC Arterial; pH - POC 7.35 (7.35-7.45)
--- NOTE | 2024-11-26 15:10 | PTCARENOTE ---
EPOC labs reviewed with CTNP; respiratory at bedside and pt extubated.
--- NOTE | 2024-11-26 15:14 | RESPNOTE ---
Patient extubated to 6L nasal cannula following cpap trial and abg. Incentive spirometry instruction completed
[2024-11-26 15:20] LABS: Hematocrit 26.9 % (37.0-47.0); Hemoglobin 8.9 g/dL (12.0-16.0); Platelet Count 141 10^3/uL (130-400)
[2024-11-26 15:50] LABS: Hepatitis C Antibody Negative (Negative)
[2024-11-26 15:51] LABS: Glucose - Point of Care 107 mg/dl (70-99)
[2024-11-26 15:51] LABS: Glucose - Point of Care 111 mg/dl (70-99)
[2024-11-26] MEDS: ANCEF 5 IV (17:16)
[2024-11-26] MEDS: LOW STRENGTH ASPIRIN 81 MG PO (17:16)
[2024-11-26] MEDS: ROXICODONE 5 MG PO (17:16)
[2024-11-26 18:30] LABS: Glucose - Point of Care 117 mg/dl (70-99)
[2024-11-26 18:32] LABS: Glucose - Point of Care 112 mg/dl (70-99)
[2024-11-26] MEDS: SENOKOT 8.6 MG PO (19:56)
[2024-11-26] MEDS: TYLENOL 975 MG PO (20:05)
[2024-11-26 20:26] LABS: Glucose - Point of Care 99 mg/dl (70-99)
--- NOTE | 2024-11-26 20:30 | PTCARENOTE ---
Assumed care of patient at 1900. Patient found resting in bed at time of assessment. Patient is AOx4, follows commands appropriately, moves all extremities. Lung sounds are diminished throughout, saO2 98% on 4L via NC, there are 2xCT draining red
sanguineous to atrium no air leak or crepitus. Heart sounds are audible, patient is SR on the monitor, normal palpable pulses, and no observable edema. V wires are present with VVI settings 40/10/2. Patient has active BS throughout all four
quadrants. Patient with episode of emesis at 2000 light brown in appearance with some reported nausea following medications. There is a sternal incision approx with surg adhesive JULISSA, a tear on lip that has been treated with vaseline TA, and L leg
skin tear. Patient has R IJ cordis with swan floated at 43cm, R radial rosetta and R AC 18G PIV. Patient has insulin gtt and is receiving KVO via cordis and VIP. Call harrington within reach.
[2024-11-26 22:09] LABS: Glucose - Point of Care 132 mg/dl (70-99)
[2024-11-26] MEDS: CRESTOR 5 MG PO (23:07)
[2024-11-26] MEDS: NEURONTIN 100 MG PO (23:07)
[2024-11-26] MEDS: FLEXERIL 5 MG PO (23:08)
[2024-11-26] MEDS: REGLAN 10 MG IV (23:43)
[2024-11-27] VITALS (34 sets, daily range): BP systolic 82–122; BP diastolic 49–102; PULSE 92; O2SAT 92–94; BMI 34.7
[2024-11-27 00:16] LABS: Glucose - Point of Care 93 mg/dl (70-99)
--- NOTE | 2024-11-27 00:30 | PTCARENOTE ---
Patient reassessed. Due to low UOP with low MAPs patient started on [address] PA. ABG and MVO2 obtained. K and Ca to be repleted. AT 2140 patient had one second run of SVT. CT PA aware no new orders no further signs of ectopi. All other VSS.
Call harrington within reach.
[2024-11-27 00:35] LABS: B.E. 0.9 mmol/L; HCO3 26.0 mmol/L (21-28); O2 Saturation % 99.8 % (94-98); PCO2 43 mmHg (32-35); PO2 96 mmHg (83-108); Potassium 3.8 mMOL/L (3.5-5.1)
[2024-11-27] MEDS: KCL 50 IV (01:22)
[2024-11-27 02:07] LABS: Glucose - Point of Care 107 mg/dl (70-99)
[2024-11-27] MEDS: ANCEF 5 IV ×2 (02:07→10:34)
[2024-11-27] MEDS: CALCIUM GLUCONATE 100 IV (02:38)
--- NOTE | 2024-11-27 03:02 | W.PN.CT ---
Today's Communication / Plan
-
-pod #1
-several episodes of vomiting overnight - got Zofran x2 and Reglan; otherwise, no issues
-got total 1000 LR
-CI 3.04, CO 6.05. mVO2 61.3. Drips: Insulin
-CT outputs: 2 meds 105/285 in 12/24 hrs
-wean off drips, then deline
-low UO overnight 20-30 per hr- maintain Moncada for critical I/O
-d/c insulin
-maintain pw, Cordis
-holding BB and Amio postop d/t intermittent periods of junctional rhythm postop. Pt was in nsr overnight, had brief run of SVT (sleeping, asymptomatic)
-monitor for signs of DT (last drink on Sunday)
-encourage IS, OOB
Assessment / Plan
-
- Severe aortic valve stenosis with mild insufficiency and small sinuses and small annulus- s/p Surgical aortic valve replacement [23 mm Dorsey Inspiris Resilia bioprosthesis]; Aortic root enlargement with aortoplasty, Nicks De La Garza type enlargement
onto the anterior leaflet the mitral valve using a bovine pericardial patch by Dr. Barragan on 11/26/24, pod #1
- Intraop JOAQUÍN: LVEF preop was 65% with no significant regional wma. Following surgery, EF remained the same if not hyperdynamic to 70% with some obliteration of her LV cavity. She had a small LVOT with some septal prominence that was concerning
for possible PINA physiology in the future. Mean gradient across her aortic valve while she was hyperdynamic was 12 mmHg.
- Moderate to severe left ventricular hypertrophy, chronic diastolic dysfunction
- Hypertension
- Hyperlipidemia
- Anxiety/depression
- Osteopenia
- Class 1 obesity (BMI 34)
- EtOH use
- Acute postop blood loss anemia
- Acute postop thrombocytopenia
- Acute postop atelectasis/pulmonary insufficiency
- Acute postop hypovolemia with subsequent hypervolemia
Discussed patient care with: Nursing and Care Team
Subjective
-
Date of Service: November 27, 2024
Objective Data
-
PT 19.5 Sec (11.4-14.6) H 11/26/24 11:15
INR 1.60 11/26/24 11:15
APTT 32.6 Sec (23.4-35.0) 11/26/24 11:15
Vital Signs
Vital Signs
Temp Pulse Resp BP Pulse Ox
98.7 F 70 15 105/53 100
11/27/24 02:00 11/27/24 02:00 11/27/24 02:00 11/27/24 02:00 11/27/24 02:00
CT Intake/Output/Weight
11/26/24 11/26/24 11/27/24
06:59 18:59 06:59
Intake Total 1053.0 / 1284.4 231.4 / 1284.4
Output Total 1140 / 1400 260 / 1400
Balance -87.0 / -115.6 -28.6 / -115.6
SaO2: 100
Physical Exam
-
General: Awake and AOx3
Cardiovascular: Regular rate & rhythm, No Murmurs and No Rub
Respiratory: Decreased Breath Sounds
Sternum: Stable
Incision: Clean, Dry and Dressing Intact
Extremities: Other (trace edema with 1+DPs b/l)
Abdomen: soft, nontender, nondistended, +decreased bowel sounds
Data Reviewed
-
Lab Results: Results Reviewed
Medications: Active Meds Reviewed
Chest X-Ray: Report Reviewed and Image Reviewed
ECG: Report Reviewed and Image Reviewed
[2024-11-27 03:36] LABS: Hematocrit 24.5 % (37.0-47.0); Hemoglobin 8.0 g/dL (12.0-16.0); Mean Corp Hgb Conc. 32.7 g/dL (33.0-37.0); Mean Corpuscular Volume 93.2 fL (81.0-99.0); Platelet Count 122 10^3/uL (130-400); Red Cell Dist. Width 13.1 % (11.5-14.5)
[2024-11-27 04:15] LABS: Glucose - Point of Care 85 mg/dl (70-99)
[2024-11-27 04:15] LABS: Blood Urea Nitrogen 16 mg/dl (7-17); Calcium 8.6 mg/dl (8.4-10.2); Carbon Dioxide 25 mmol/L (22-30); Chloride 113 mmol/L (98-107); Estimated Creatinine Clearance 63 ml/min; Glucose 88 mg/dl (70-99); Magnesium 2.4 mg/dl (1.6-2.3); Potassium 4.2 mmol/L (3.5-5.1); Sodium 141 mmol/L (135-145); eGFR > 60.00
--- NOTE | 2024-11-27 06:00 | PTCARENOTE ---
Patient reassessed. Precedex off at ~0400 BP and CI improved. UOP remains low. Octavio shane. Swati and jennifer to be maintained. AM hygiene care provided. AM EKG obtained. OOB to chair without incident.
[2024-11-27 06:10] LABS: Glucose - Point of Care 85 mg/dl (70-99)
--- NOTE | 2024-11-27 07:43 | W.PN.ANS.POP ---
Anesthesia Post Operative
- Anesthesia Post Op Note
Vital Signs Stable-See Nursing Note: Yes
Airway Patent: Yes
Adequate Pain Control: Yes
Change in Mental Status: No
Current Postoperative Nausea & Vomiting: No
Anesthesia Complications: No
General Anesthetic Recall: No
Unplanned Admission: No
Post Op Hydration Adequate: Yes
- -
Pt OOB to chair resting comfortably. N/V last night, seems resolved today. VSS
[2024-11-27 07:59] LABS: Glucose - Point of Care 105 mg/dl (70-99)
[2024-11-27] MEDS: TYLENOL 975 MG PO ×3 (08:01→21:58)
[2024-11-27] MEDS: SYNTHROID 125 MCG PO (08:01)
--- NOTE | 2024-11-27 08:15 | PTCARENOTE ---
Assumed care of patient. Walking rounds completed with previous RN. Pt assessed while she was sitting up in the chair. Pt alert and oriented x4. Rates sternal pain 5/10, denies shortness of breath, and nausea. BRUSH with equal strength throughout. NSR
on tele with rates in the 80s. BP 100s-110s/50s-60s via rosetta, 96/49 via cuff. Heart tones audible. Bilateral radial and DP pulses palpable. +1 hand and ankle edema. Epicardial v-wire to back up VVI 40/10, no pacing noted. POX 96% on 2L NC, titrated
to RA, POX 88%, reapplied 2L NC. Lungs diminished in the bases. IS encouraged-750ml achieved. Occasional moist nonproductive cough noted. Mediastinal chest tubes x2 y-sited to 1 atrium to -20cm suction draining serosanguineous fluid. No air leaks,
tidaling, crepitus. Abdomen soft, round, nontender. Hypoactive BS. Pt denies gas at this time. Moncada catheter intact draining inadequate amounts of clear yellow urine 20ml/hr, CT PA notified. Sternal incision approximated with skin glue, JULISSA. CT
dressing CDI. Top lip with small bruise noted. Left griffith with scab intact. Right IJ cordis intact, difficult to flush. Right radial rosetta intact with appropriate waveform, flushed, leveled, zeroed. Right AC 18g PIV intact infusing insulin gtt per
Critical Care Glycemic Protocol. See MAR for medication administration. See worklist for complete nursing assessment. Plan of care reviewed and patient in agreement.
--- NOTE | 2024-11-27 08:30 | W.PN.INTV ---
Today's Communication / Plan
Recommendations
Pain control
Up OOB as tolerated
Cardiac rehab consult
Encourage incentive spirometer
Goal BG 110�140
Removal of mediastinal chest tubes per CT surgery team
Machine Sand Mixer service will continue to follow along while she remains CVICU status. Once transferred to CVICU�telemetry status then we will sign off at that time.
Assessment
-
Assessment: 74-year-old female with a past medical history of nonrheumatic aortic valve stenosis, hypertension, hypothyroidism, anxiety/depression, CKD, mild intermittent asthma and history of kidney stones who presents for elective aortic valve
replacement. Patient known to the cardiothoracic surgery service, with visit on 11/03/[address] Barragan. Patient had a CT TAVR on 10/06/2024 showing a small annular size. She has been more short of breath going up stairs and fatigued. The
symptoms have been worsening over the month prior to this office visit. Surgical intervention was discussed and she consented. On 11/26/2024, she underwent a surgical aortic valve replacement with a 23 mm bioprosthesis, as well as aortic root
enlargement with aortoplasty. There were no complications and she was transferred to the CVICU postoperatively with Machine Sand Mixer services consulted for additional management/recommendations.
Chronic conditions SPECIAL DISTRIBUTION CLERK: Aortic valve stenosis, hypertension, hypothyroidism, anxiety, depression, osteoarthritis, asthma, CKD, history of kidney stones, basal cell carcinoma s/p Mohs (04/2019)
Impression:
#Aortic valve stenosis with mild insufficiency and small sinuses/small annulus s/p surgical aortic valve replacement (23 mm bioprosthesis) + aortic root enlargement with aortoplasty - POD #1
#Acute anemia due to above
#Acute thrombocytopenia due to above
#Moderate�severe LVH
#Hypertension
#Hyperlipidemia
#Anxiety/depression
#Osteopenia
#Stable 8mm pulmonary nodule within the lingula and stable 3mm nodule in lateral LLL (stable since CT A/P from 06/01/2021)
#Bibasilar subpleural interstitial fibrosis +/- scarring with focal bronchiectasis in RML and LLL (present since at least 2021)
#Former tobacco smoker
Plan:
Patient successfully extubated to nasal cannula on 11/26/2024, and is currently saturating 94% on 2 L/min and breathe comfortably
Continue with supplemental oxygen and wean down as tolerated while maintaining SpO2 >90-94%
prn nebulized bronchodilators - not currently bronchospastic
Encourage incentive spirometer q1hr while awake
Pressors/antihypertensive/inotropes/diuretics will be provided as needed
Maintain MAP>65
Replete electrolytes with K>4, Mg>2
Monitor chest tube output (mediastinal chest tubes x 2)
Monitor hemoglobin
Monitor platelet count and coags
Transfuse blood products as needed to maintain Hb>7g/dL, plt>50k (given post-operative status)
CT surgery managing chest tubes
Monitor blood sugar to maintain euglycemia with goal BG 110-140
Insulin drip has been weaned off; recommend to use ISS to keep BG at goal as above
Aspiration precautions
DVT prophylaxis
Early nutrition
Early mobilization
Machine Sand Mixer service will continue to follow along while she remains CVICU status. Once transferred to CVICU�telemetry status then we will sign off at that time.
Total time spent today was 57 minutes for this encounter. Time includes reviewing laboratory test/imaging results, reviewing pertinent medical records, obtaining and reviewing medical history, performing an appropriate exam, ordering medications,
tests and procedures. Time also includes documentation of this encounter, coordinating patient care and communicating with other healthcare professionals. Total time does not include separately billed tests performed on this date of service.
Subjective Dataa
Subjective Data
Date of Service:
Date of Service: November 27, 2024
Chief Complaint: Machine Sand Mixer Follow Up
Subjective:
Patient seen and evaluated today at bedside. Sitting in chair no acute distress. Heart rate 92, BP via NIBP: 99/69. Saturating 94% on 2 L/min. She mainly feels tired. Also has pressure on her back. Mediastinal chest tubes x [address]. She
denies REYNOLDS, abdominal pain, nausea, fevers or chills.
Review of Systems
General: Other (Negative unless mentioned above)
Objective Data
Data Reviewed
Vital Signs / I&O / Oxygen:
Vital Signs
Temp Pulse Resp BP Pulse Ox
98.0 F 78 16 107/62 95
11/27/24 09:00 11/27/24 10:15 11/27/24 10:00 11/27/24 10:00 11/27/24 10:15
Intake and Output
11/26/24 11/27/24 11/28/24
06:59 06:59 06:59
Intake Total 1606.3 / 1616.7 524.9 / 524.9
Output Total 1675 / 1675 160 / 160
Balance -68.7 / -58.3 364.9 / 364.9
SaO2 [CPAP] 98
SaO2 [SIMV] 95
SaO2 95
Nasal Cannula flow liters per 1
minute
Physical Exam
General: Respiratory Distress (negative), Comfortable, Chills (negative) and Sweats (negative)
HEENT: Normocephalic and Anicteric
Cardiovascular: S1-S2 and Peripheral Edema (negative)
Respiratory: Clear, Wheeze (negative), Crackles (negative), Rhonchi (negative), Non-Labored Respirations, Stridor (negative) and Chest Tube (Mediastinal chest tubes x 2)
GI: Soft, Non Distended, Non Tender and Normal Bowel Sounds
Neurology: AO x 3 and Tremors (negative)
Skin: Warm, Dry, Cyanosis (negative) and Jaundice (negative)
Labs/Micro/Reports
Lab Data
11/27/24 03:14
11/27/24 03:14
Laboratory Results
11/26/24 11/27/24
11:15 00:22
PT 19.5 H
INR 1.60
APTT 32.6
pH 7.41 7.39
pCO2 36 H 43 H
pO2 158 H 96
HCO3 22.8 26.0
O2 Delivery Level
[2024-11-27] MEDS: LOW STRENGTH ASPIRIN 81 MG PO (08:36)
[2024-11-27] MEDS: ZOLOFT 50 MG PO (08:36)
[2024-11-27] MEDS: PROTONIX 40 MG PO (08:36)
[2024-11-27] MEDS: NEURONTIN 100 MG PO ×3 (08:36→21:58)
[2024-11-27] MEDS: BACTROBAN 2% OINTMENT 1 APPLIC NASAL ×2 (08:36→20:04)
[2024-11-27] MEDS: LIDOCAINE 4% PATCH 1 PATCH TOPICAL (08:36)
[2024-11-27] MEDS: MAGNESIUM OXIDE 400 MG PO ×2 (08:37→20:03)
[2024-11-27] MEDS: SENOKOT 8.6 MG PO ×2 (08:37→20:03)
[2024-11-27] MEDS: NSS IV (08:46)
--- NOTE | 2024-11-27 10:00 | PTCARENOTE ---
Pt assisted to walk to the doorway with cardiac rehab. Assisted back to bed. Right radial rosetta d/c per orders, hemostasis achieved. Moncada care completed. CT dressing changed and cleansed with CHG. Cordis flushed without success, noted to be
severely kinked. Redressed, unable to resolve kinking, CT PA notified. Awaiting orders.
[2024-11-27 10:27] LABS: Glucose - Point of Care 96 mg/dl (70-99)
[2024-11-27] MEDS: FLEXBUMIN 100 IV (10:34)
[2024-11-27] MEDS: PACERONE 200 MG PO ×3 (10:34→21:58)
[2024-11-27] MEDS: NON-FORMULARY ITEM 1 UNIT PO ×2 (11:18→20:04)
[2024-11-27 11:23] LABS: Glucose - Point of Care 104 mg/dl (70-99)
--- NOTE | 2024-11-27 12:00 | PTCARENOTE ---
Pt reassessed. SR with rates in the 70s-80s. BP 105/58. POX 93% on 1L NC. IS encouraged d/t temp. Right IJ cordis d/c as per orders. Moncada continues to drain inadequate amounts of urine, CT CIGARETTE PACKING MACHINE OPERATOR notified. Right AC 18g PIV intact. Pt resting in bed,
states 'im tired'. Insulin gtt d/c as per orders.
--- NOTE | 2024-11-27 12:32 | CM ---
Chart reviewed. Patient lying in bed. Patient independent of ADLS, lives with her daughter and 2 grandchildren in a 2 [address], 1 [address] floor set up, 4 ROSINA, 0 DME. Plan is for the patient to return home. CM to follow
--- NOTE | 2024-11-27 13:38 | W.PN.CARDCBS ---
Addendum entered and electronically signed by Pavel Medellin DO 11/27/24 21:06:
I saw and examined the patient.
The Field Assistant's note was reviewed and I agree with the note.
Comment:
Plan:
-s/p bioprosthetic AVR #23mm and aortic root enlargement with aortoplasty 11/26/24
Cont post op care
bp stable off pressors.
If pt has recurrent aFib, low threshold for anticoagulation from cardiac standpoint.
Original Note:
Today's Communication / Plan
-
continue postop care
follow rhythm
Impression / Plan
-
Primary Home Stereo Equipment Installer: Dr. Lee of [facility]
Assessment:
Severe symptomatic s/p bioprosthetic AVR #23mm and aortic root enlargement with aortoplasty 11/26/24
LVH
Severe symptomatic
HTN
HLD
Hypothyroidism
Asthma
OA of B/L knees
Anxiety/depression
Obesity
ECHO 07/23/2024: EF 60 to 65%, peak/mean gradients 92/58 mmHg with HERI 0.83 cm�, mild AI, mild MAC, trace MR, RVSP 20.8 mmHg
Plan:
-s/p bioprosthetic AVR #23mm and aortic root enlargement with aortoplasty 11/26/24
-off pressors
-in SR with PACs, 1 brief run of SVT and 1 brief run of atrial fibrillation overnight. continue to monitor
-QTc improved by repeat EKG 11/27
-hgb 8.0 , follow
-Continue postop care
-Prior to admission was on Norvasc 7.5 mg nightly, Cozaar 100 mg nightly and Toprol 50 mg nightly. Resume postoperatively as able
Progress Note - Home Stereo Equipment Installer
Subjective
Date of Service: November 27, 2024
Reports some chest soreness. Denies significant shortness of breath or palpitations
Objective
Labs:
11/27/24 03:14
11/27/24 03:14
Labs
Hgb 8.0 g/dL (12.0-16.0) L 11/27/24 03:14
Hct 24.5 % (37.0-47.0) L 11/27/24 03:14
Plt Count 122 10^3/uL (130-400) L 11/27/24 03:14
PT 19.5 Sec (11.4-14.6) H 11/26/24 11:15
INR 1.60 11/26/24 11:15
APTT 32.6 Sec (23.4-35.0) 11/26/24 11:15
Sodium 141 mmol/L (135-145) 11/27/24 03:14
Potassium 4.2 mmol/L (3.5-5.1) 11/27/24 03:14
BUN 16 mg/dl (7-17) 11/27/24 03:14
Creatinine 0.9 mg/dL (0.6-1.0) 11/27/24 03:14
Glucose 88 mg/dl (70-99) 11/27/24 03:14
Vital Signs and I&O:
Vital Signs
Temp Pulse Resp BP Pulse Ox
99.0 F 100 16 109/79 94
11/27/24 12:00 11/27/24 13:30 11/27/24 12:00 11/27/24 13:01 11/27/24 13:30
Vital Signs
Temp Pulse Resp BP Pulse Ox
99.0 F 100 16 109/79 94
11/27/24 12:00 11/27/24 13:30 11/27/24 12:00 11/27/24 13:01 11/27/24 13:30
Intake & Output
11/25/24 11/26/24 11/27/24 11/28/24
07:59 07:59 07:59 07:59
Intake Total 1616.7 / 1868.7 874.5 / 874.5
Output Total 1675 / 1750 215 / 215
Balance -58.3 / 118.7 659.5 / 659.5
Physical Exam
Physical Exam
GEN: No distress, awake, alert, oriented x3. sitting in chair
HEENT: supple, anicteric, mmm, EOMI
LUNGS: CTA bilaterally, no wheezes/rales
CV: Reg, S1/S2, 1/6 syst LSB
ABD: soft, BS+, NT/ND
EXT: No cyanosis, clubbing. trace edema
NEURO: Gross non-focal
SKIN: Warm, pink, dry. No rash. sternotomy incision clean dry and intact
[2024-11-27] MEDS: FERRLECIT 110 MG IV (13:47)
[2024-11-27] MEDS: ROXICODONE 5 MG PO ×2 (13:47→20:03)
--- NOTE | 2024-11-27 16:00 | PTCARENOTE ---
Pt reassessed. Resting in the chair. States sternal pain is better /10. NSR on tele with rates in the 80s with occasional PVCs. BP 99/69. POX 94% on 2L NC. Surgical sites stable. CT output WNL. UO 30ml/hr, CT DOWEL PIN WORKER notified. No other acute changes
from previous assessment.
[2024-11-27] MEDS: LASIX 40 MG IV (18:31)
--- NOTE | 2024-11-27 20:00 | PTCARENOTE ---
Assumed care of patient at 1900. Patient found oob in chair at time of assessment. Patient is AOx4, follows commands appropriately, moves all extremities. Lung sounds are diminished in the bases, saO2 98% on 2L, CTx2: 2xmeds draining serosang to an
atrium without air leak or crepitus. Heart sounds are audible, there is a slight murmur present on auscultation. Patient has normal palpable pulses and has +1 bilat ankle edema as well as trace edema in the hand. Patient has active BS in all four
quadrants and has a rodriguez draining clear yellow to bag. There is a sternal incision approx with surg adhesive FRAMEMAN, a small lip laceration JULISSA, and L leg skin tear scabbed over FRAMEMAN. Patient has R AC PIV for intermittent infusion. VSS call harrington within
reach.
[2024-11-27] MEDS: REMOVE LIDOCAINE PATCH 1 PATCH REMOVE (21:59)
[2024-11-27] MEDS: LOPRESSOR 12.5 MG PO (21:59)
[2024-11-27] MEDS: CRESTOR 5 MG PO (21:59)
[2024-11-28] VITALS (36 sets, daily range): BP systolic 88–146; BP diastolic 55–91; PULSE 88; O2SAT 92–97; BMI 35.6
--- NOTE | 2024-11-28 | PTCARENOTE ---
Patient reassessed. VSS. Given luis m 5 at ~2000 for pain which was effective relief on reassessment. Remains SR on the monitor PVCs very infrequent.
[2024-11-28] MEDS: ROXICODONE 5 MG PO ×3 (03:07→22:41)
[2024-11-28 03:51] LABS: Hematocrit 25.5 % (37.0-47.0); Hemoglobin 8.0 g/dL (12.0-16.0); Mean Corp Hgb Conc. 31.4 g/dL (33.0-37.0); Mean Corpuscular Volume 95.5 fL (81.0-99.0); Platelet Count 127 10^3/uL (130-400); Red Cell Dist. Width 13.8 % (11.5-14.5)
--- NOTE | 2024-11-28 04:00 | PTCARENOTE ---
Patient reassessed. VSS. AM hygiene care provided. AM labs obtained. OOB to chair without incident. Additional dose Maribel at ~0300. Remains SR on the monitor.
[2024-11-28 04:05] LABS: Blood Urea Nitrogen 23 mg/dl (7-17); Calcium 8.0 mg/dl (8.4-10.2); Carbon Dioxide 27 mmol/L (22-30); Chloride 101 mmol/L (98-107); Estimated Creatinine Clearance 44 ml/min; Glucose 139 mg/dl (70-99); Magnesium 2.2 mg/dl (1.6-2.3); Potassium 4.4 mmol/L (3.5-5.1); Sodium 133 mmol/L (135-145); eGFR 43.69
[2024-11-28] MEDS: TYLENOL 975 MG PO ×3 (06:08→20:30)
[2024-11-28] MEDS: SYNTHROID 125 MCG PO (06:08)
--- NOTE | 2024-11-28 07:00 | PTCARENOTE ---
Handoff report received from nightshift RN. Pt AOx4, NSR w/ PVCs 70s-80s on tele, SBP 90s-100s, 2L NC satting 95-98% lungs diminished in bases. Pt does not c/o pain at this time. IS encouraged. Moncada itnact and draining clear yellow urine, I/Os
charted. +2/+1 pulses, +1 edema in BL ankles. V wires insulated at this time. Sternal incision approximated, glued and JULISSA. Lip Lac present, scabbed and BULB INSPECTOR. L griffith skin tear POA scabbed and JULISSA. R IJ cordis site CDI. Mediastinal CT -20sx, no
airleak or crepitus noted, I/Os charted, dressing CDI. 1 unit PRBCs ordered this AM and infusing. New PIV placed in L FA for blood transfusion d/t L PIV being sluggish, blood would not infuse via gravity with L PIV site. Pt OOB at this time. All
needs met, call harrington within reach.
--- NOTE | 2024-11-28 07:59 | W.PN.CT ---
Today's Communication / Plan
-
-pod #2
-no issues overnight
-CT outputs: 2 meds 85/230 in 12/24 hrs
-started on Midodrine for hypotension
-responded well to iv Lasix on 11/27 (UO 960/1240 in 12/24 hrs)
-Cordis dcd (nonfunctional)
-BB and Amio were resumed. Follow rhythm
-follow Hg - 8.0 today (8.0 on 11/27). Cr increased from 0.9 to 1.3 today. Will give [address] Barragan
-continue diuresis if BP tolerates
-encourage IS, OOB
]
Assessment / Plan
-
- Severe aortic valve stenosis with mild insufficiency and small sinuses and small annulus- s/p Surgical aortic valve replacement [23 mm Dorsey Inspiris Resilia bioprosthesis]; Aortic root enlargement with aortoplasty, Nicks Frederic type enlargement
onto the anterior leaflet the mitral valve using a bovine pericardial patch by Dr. Barragan on 11/26/24, pod #2
- Intraop JOAQUÍN: LVEF preop was 65% with no significant regional wma. Following surgery, EF remained the same if not hyperdynamic to 70% with some obliteration of her LV cavity. She had a small LVOT with some septal prominence that was concerning
for possible PINA physiology in the future. Mean gradient across her aortic valve while she was hyperdynamic was 12 mmHg.
- Moderate to severe left ventricular hypertrophy, chronic diastolic dysfunction
- Hypertension
- Hyperlipidemia
- Anxiety/depression
- Osteopenia
- Class 1 obesity (BMI 34)
- EtOH use
- Acute postop blood loss anemia
- Acute postop thrombocytopenia
- Acute postop atelectasis/pulmonary insufficiency
- Acute postop hypovolemia with subsequent hypervolemia
- Acute postop hypotension - on Midodrine
- LOLA
Discussed patient care with: Nursing and Care Team
Subjective
-
Date of Service: November 28, 2024
Objective Data
-
PT 19.5 Sec (11.4-14.6) H 11/26/24 11:15
INR 1.60 11/26/24 11:15
APTT 32.6 Sec (23.4-35.0) 11/26/24 11:15
Vital Signs
Vital Signs
Temp Pulse Resp BP Pulse Ox
99.8 F 74 20 102/63 94
11/27/24 22:00 11/28/24 01:15 11/28/24 01:00 11/28/24 01:00 11/28/24 01:15
CT Intake/Output/Weight
11/27/24 11/27/24 11/28/24
06:59 18:59 06:59
Intake Total 553.3 / 1616.7 1124.9 / 1124.9
Output Total 535 / 1675 425 / 1275 850 / 1275
Balance 18.3 / -58.3 699.9 / -150.1 -850 / -150.1
SaO2: 94
Physical Exam
-
General: Awake and AOx3
Cardiovascular: Regular rate & rhythm, No Murmurs and No Rub
Respiratory: Decreased Breath Sounds
Sternum: Stable
Incision: Clean, Dry and Dressing Intact
Extremities: Other (trace edema with 1+DPs b/l)
Abdomen: soft, nontender, nondistended, +decreased bowel sounds
Data Reviewed
-
Lab Results: Results Reviewed
Medications: Active Meds Reviewed
Chest X-Ray: Report Reviewed and Image Reviewed
ECG: Report Reviewed and Image Reviewed
--- NOTE | 2024-11-28 08:24 | W.PN.INTV ---
Addendum entered and electronically signed by Woody Kaur MD 11/28/24 16:34:
Correction: Patient is not back on dobutamine drip. She has been downgraded to CVICU�telemetry status. No additional recommendations at this time. [facility] Specialists/Pulmonary service will now sign off. Thank you for allowing us to be involved in the
care of this patient. Please reconsult if there are any additional questions/concerns, or if patient's respiratory status deteriorates.
Original Note:
Today's Communication / Plan
Recommendations
Pain control
Up OOB as tolerated
Cardiac rehab consult
Encourage incentive spirometer
Goal BG 110�140
Removal of mediastinal chest tubes per CT surgery team
Back on dobutamine gtt
Clarity Specialists service will continue to follow along while she remains CVICU status. Once transferred to CVICU�telemetry status then we will sign off at that time.
Assessment
-
Assessment: 74-year-old female with a past medical history of nonrheumatic aortic valve stenosis, hypertension, hypothyroidism, anxiety/depression, CKD, mild intermittent asthma and history of kidney stones who presents for elective aortic valve
replacement. Patient known to the cardiothoracic surgery service, with visit on 11/03/[address] Barragan. Patient had a CT TAVR on 10/06/2024 showing a small annular size. She has been more short of breath going up stairs and fatigued. The
symptoms have been worsening over the month prior to this office visit. Surgical intervention was discussed and she consented. On 11/26/2024, she underwent a surgical aortic valve replacement with a 23 mm bioprosthesis, as well as aortic root
enlargement with aortoplasty. There were no complications and she was transferred to the CVICU postoperatively with Clarity Specialists services consulted for additional management/recommendations.
Chronic conditions CURING OVEN TENDER: Aortic valve stenosis, hypertension, hypothyroidism, anxiety, depression, osteoarthritis, asthma, CKD, history of kidney stones, basal cell carcinoma s/p Mohs (04/2019)
Impression:
#Aortic valve stenosis with mild insufficiency and small sinuses/small annulus s/p surgical aortic valve replacement (23 mm bioprosthesis) + aortic root enlargement with aortoplasty - POD #2
#Acute anemia due to above
#Acute thrombocytopenia due to above
#Moderate�severe LVH
#Hypertension
#Hyperlipidemia
#Anxiety/depression
#Osteopenia
#Stable 8mm pulmonary nodule within the lingula and stable 3mm nodule in lateral LLL (stable since CT A/P from 06/01/2021)
#Bibasilar subpleural interstitial fibrosis +/- scarring with focal bronchiectasis in RML and LLL (present since at least 2021)
#Former tobacco smoker
Plan:
Patient successfully extubated to nasal cannula on 11/26/2024, and is currently saturating 95% on 2 L/min and breathing comfortably
Continue with supplemental oxygen and wean down as tolerated while maintaining SpO2 >90-94%
prn nebulized bronchodilators - not currently bronchospastic
Encourage incentive spirometer q1hr while awake
Pressors/antihypertensive/inotropes/diuretics will be provided as needed ---> currently on dobutamine gtt
Maintain MAP>65
Replete electrolytes with K>4, Mg>2
Monitor chest tube output (mediastinal chest tubes x 2)
Monitor hemoglobin
Monitor platelet count and coags
Transfuse blood products as needed to maintain Hb>7g/dL, plt>50k (given post-operative status)
CT surgery managing chest tubes
Monitor blood sugar to maintain euglycemia with goal BG 110-140
Insulin drip has been weaned off; recommend to use ISS to keep BG at goal as above
Aspiration precautions
DVT prophylaxis
Early nutrition
Early mobilization
Clarity Specialists service will continue to follow along while she remains CVICU status. Once transferred to CVICU�telemetry status then we will sign off at that time.
Critical care statement: A total of 42 minutes of critical care time was provided for this patient today. This includes management of unstable vital signs, evaluation of the patient at bedside, reviewing the patient�s pertinent medical records
including radiographs, microbiology, laboratory evaluations, and��discussion with primary team, consultants, pharmacy, nutrition, physical therapy, case management, charge nurse, critical care nursing, and respiratory therapy.
Subjective Dataa
Subjective Data
Date of Service:
Date of Service: November 28, 2024
Chief Complaint: Clarity Specialists Follow Up
Subjective:
Seen this morning. Resting in bed in no acute distress. Mediastinal chest tubes x [address]. Saturating 95% on 2 L/min and heart rate 76, BP 112/64.
Review of Systems
General: Other (Negative unless mentioned above)
Objective Data
Data Reviewed
Vital Signs / I&O / Oxygen:
Vital Signs
Temp Pulse Resp BP Pulse Ox
99.1 F 92 15 110/63 96
11/28/24 10:01 11/28/24 14:15 11/28/24 10:01 11/28/24 14:00 11/28/24 14:15
Intake and Output
11/27/24 11/28/24 11/29/24
06:59 06:59 06:59
Intake Total 1606.3 / 1616.7 1124.9 / 1124.9 500 / 500
Output Total 1675 / 1675 1515 / 1515 1205 / 1205
Balance -68.7 / -58.3 -390.1 / -390.1 -705 / -705
SaO2 [CPAP] 98
SaO2 [SIMV] 95
SaO2 96
Nasal Cannula flow liters per 2
minute
Physical Exam
General: Respiratory Distress (negative), Comfortable, Chills (negative) and Sweats (negative)
HEENT: Normocephalic and Anicteric
Cardiovascular: S1-S2 and Peripheral Edema (negative)
Respiratory: Clear, Wheeze (negative), Crackles (negative), Rhonchi (negative), Non-Labored Respirations, Stridor (negative) and Chest Tube (Mediastinal chest tubes x 2)
GI: Soft, Non Distended, Non Tender and Normal Bowel Sounds
Neurology: AO x 3 and Tremors (negative)
Skin: Warm, Dry, Cyanosis (negative) and Jaundice (negative)
Labs/Micro/Reports
Lab Data
11/28/24 03:31
[2024-11-28] MEDS: PROTONIX 40 MG PO (08:30)
[2024-11-28] MEDS: LOPRESSOR 12.5 MG PO ×2 (08:31→20:22)
[2024-11-28] MEDS: NEURONTIN 100 MG PO ×3 (08:31→22:40)
[2024-11-28] MEDS: ZOLOFT 50 MG PO (08:31)
[2024-11-28] MEDS: LOW STRENGTH ASPIRIN 81 MG PO (08:31)
[2024-11-28] MEDS: PACERONE 200 MG PO ×3 (08:31→22:40)
[2024-11-28] MEDS: MAGNESIUM OXIDE 400 MG PO ×2 (08:31→20:22)
[2024-11-28] MEDS: NON-FORMULARY ITEM 1 UNIT PO ×2 (08:31→20:23)
[2024-11-28] MEDS: SENOKOT 8.6 MG PO ×2 (08:31→20:22)
[2024-11-28] MEDS: LIDOCAINE 4% PATCH 1 PATCH TOPICAL (08:32)
[2024-11-28] MEDS: BACTROBAN 2% OINTMENT 1 APPLIC NASAL ×2 (08:32→20:22)
[2024-11-28] MEDS: LASIX 40 MG IV (09:58)
[2024-11-28] MEDS: NSS IV (10:44)
--- NOTE | 2024-11-28 12:00 | PTCARENOTE ---
Patient ambulated out into hallway with cardiac rehab. Pt does not c/o pain at this time. Chest tube remains in place to -20sx, rodriguez draining clear yellow urine, I/Os charted. VSS at this time. Pt remains on 2L NC. All needs met, call harringotn within
reach.
--- NOTE | 2024-11-28 12:02 | CM ---
Chart reviewed. Patient OOB sitting in the chair. Patient is independent of ADLS, lives with her daughter and 2 grandchildren in a 2 sT, 1st floor set up, 4 ROSINA, 0 DME. Plan is for the patient to return home with CT Transitional RN. CM to
follow
--- NOTE | 2024-11-28 12:14 | W.PN.CARDCBS ---
Addendum entered and electronically signed by Palma Heath DO 11/28/24 19:12:
I saw and examined the patient.
The Traffic Agent's note was reviewed and I agree with the note.
Comment: Patient was seen and examined. Sitting out of bed to chair without new complaints.
General: No acute distress, AAOX3
Heart: Regular, positive S1/S2No murmur
Lungs: Bronchovesicular breath sounds, decreased. Positive chest tubes. Positive pacing wires.
Abd: Mildly distended. Positive bowel sounds. Nontender.
Ext: + 1 edema
Plan:
s/p Surgical aortic valve replacement [23 mm Dorsey Inspiris Resilia bioprosthesis]; Aortic root enlargement with aortoplasty, Nicks Frederic type enlargement onto the anterior leaflet the mitral valve using a bovine pericardial patch by Dr. Barragan on
11/26/24, pod #2
-Blood pressures better on midodrine not requiring pressors
-in SR on review of tele overnight with 2 brief runs of SVT. had 1 brief run of afib 11/26. follow. if with recurrent afib, would consider for OAC. continue po amio and lopressor
-hgb 8.0 this AM. s/p 1 U PRBCs
-diurese as able
-Continue postop care, IS/OOB
-OP follow up for ATC
Original Note:
Today's Communication / Plan
-
Continue postop care
Follow rhythm and BP
Impression / Plan
-
Primary Pool Manager: Dr. Lee of [facility]
Assessment:
Severe symptomatic s/p bioprosthetic AVR #23mm and aortic root enlargement with aortoplasty 11/26/24
LVH
Severe symptomatic
HTN
HLD
Hypothyroidism
Asthma
OA of B/L knees
Anxiety/depression
Obesity
ECHO 07/23/2024: EF 60 to 65%, peak/mean gradients 92/58 mmHg with HERI 0.83 cm�, mild AI, mild MAC, trace MR, RVSP 20.8 mmHg
Plan:
-s/p bioprosthetic AVR #23mm and aortic root enlargement with aortoplasty 11/26/24
-in SR on review of tele overnight with 2 brief runs of SVT. had 1 brief run of afib 11/26. follow. if with recurrent afib, would consider for OAC. continue po amio and lopressor
-hgb 8.0 this AM. s/p 1 U PRBCs
-diurese as able, Cr up today. was started on midodrine this AM for relative hypotension
-Continue postop care, IS/OOB
-Prior to admission was on Norvasc 7.5 mg nightly, Cozaar 100 mg nightly and Toprol 50 mg nightly. Resume postoperatively as able
-OP follow up for [facility]
Progress Note - Pool Manager
Subjective
Date of Service: November 28, 2024
Resting comfortably
Objective
Labs:
11/28/24 03:31
11/28/24 03:31
Labs
Hgb 8.0 g/dL (12.0-16.0) L 11/28/24 03:31
Hct 25.5 % (37.0-47.0) L 11/28/24 03:31
Plt Count 127 10^3/uL (130-400) L 11/28/24 03:31
PT 19.5 Sec (11.4-14.6) H 11/26/24 11:15
INR 1.60 11/26/24 11:15
APTT 32.6 Sec (23.4-35.0) 11/26/24 11:15
Sodium 133 mmol/L (135-145) L D 11/28/24 03:31
Potassium 4.4 mmol/L (3.5-5.1) 11/28/24 03:31
BUN 23 mg/dl (7-17) H 11/28/24 03:31
Creatinine 1.3 mg/dL (0.6-1.0) H 11/28/24 03:31
Glucose 139 mg/dl (70-99) H 11/28/24 03:31
Vital Signs and I&O:
Vital Signs
Temp Pulse Resp BP Pulse Ox
99.1 F 71 15 110/75 95
11/28/24 10:01 11/28/24 11:02 11/28/24 10:01 11/28/24 11:02 11/28/24 11:00
Vital Signs
Temp Pulse Resp BP Pulse Ox
99.1 F 71 15 110/75 95
11/28/24 10:01 11/28/24 11:02 11/28/24 10:01 11/28/24 11:02 11/28/24 11:00
Intake & Output
11/26/24 11/27/24 11/28/24 11/29/24
07:59 07:59 07:59 07:59
Intake Total 1616.7 / 1868.7 1114.5 / 1114.5 500 / 500
Output Total 1675 / 1750 1515 / 1565 615 / 615
Balance -58.3 / 118.7 -400.5 / -450.5 -115 / -115
Physical Exam
Physical Exam
Resting comfortably. Sinus rhythm on telemetry. No audible wheezing.
[2024-11-28] MEDS: FERRLECIT 110 MG IV (14:04)
--- NOTE | 2024-11-28 14:44 | PN.CDI ---
CDI
- -
CDI:
Physician Documentation Request
Admit Date: 11/26/24 05:16
Dear Doctor/CVPA
Please review the following and provide your response in the progress notes.
Clinical Indicators:
Pt admitted with s/p TAVR on 11/26
Progress note 11/28, '-continue diuresis if BP tolerates... Intraop JOAQUÍN: LVEF preop was 65% with no significant regional wma.... Moderate to severe left ventricular hypertrophy, chronic diastolic dysfunction....'
CXR 11/28, ' There are mildly increased central vascular interstitial markings in the lungs....There are small bilateral pleural effusions (left greater than right)....'
Per MAR did get IV Lasix 40 mg x 2 doses 11/27 & 11/28
Please provide a diagnosis for the above findings /treatment of IV Lasix :
Acute Diastolic CHF
Hypervolemia only
Other ( please specify)
Use of terms such as suspected, likely, concern for, or probable (associated with a specific diagnosis that is being evaluated, monitored, or treated as if it exists) are acceptable and can be coded in the inpatient setting, when documented at the
time of discharge.
Thank you,
Amanda Cheatham RN
CDI Specialist
[facility]
Please use your independent medical judgment in providing your response.
--- NOTE | 2024-11-28 14:50 | W.PN.UPDATE ---
Update Note
Progress Note Update
No pacing required since surgery. Bipolar V wire removed without difficulty. Bedrest x 1 hours and vital signs every 15 minutes x 1 hour per protocol.
--- NOTE | 2024-11-28 14:54 | PTCARENOTE ---
Patient OOB in chair. Pt ambulated out in the [place] again with rehab and this RN, no c/o dizziness. Scheduled tylenol and ferrlecit gtt infusing per order. Pt dose not c/o pain. Patient ambulated back to bed with Ax2. V wire pulled by Lorena ESPINAL.
Chest tube to -20 sx and rodriguez drainging clear yellow urine. I/Os charted. All needs met at this time, call harrington within reach. Handoff report given to Aileen Yanes RN.
--- NOTE | 2024-11-28 16:41 | PTCARENOTE ---
Pacing wire removed by CT CLAUDIA. 1 hr of bedrest and Q15min VS completed. CTs removed without incident. Labs obtained as ordered. Pt medicated for pain.
[2024-11-28 16:58] LABS: Blood Urea Nitrogen 23 mg/dl (7-17); Calcium 7.9 mg/dl (8.4-10.2); Carbon Dioxide 28 mmol/L (22-30); Chloride 100 mmol/L (98-107); Estimated Creatinine Clearance 53 ml/min; Glucose 141 mg/dl (70-99); Potassium 4.0 mmol/L (3.5-5.1); Sodium 130 mmol/L (135-145); eGFR 53.39
[2024-11-28] MEDS: REMOVE LIDOCAINE PATCH 1 PATCH REMOVE (20:22)
--- NOTE | 2024-11-28 20:30 | PTCARENOTE ---
Patient received resting in bed. Patient A+A+Ox3. No neurological deficits noted. No c/o headache, dizziness or lightheadedness. O2 at 2L via NC. SpO2 95%. Chest tube dressing intact. Sinus Rhythm. Heart rate 70's. Blood pressure 114/68
(81). Patient with no c/o chest pain, pressure or discomfort. Abdomen soft, round. Normoactive bowel sounds. No BM. Moncada catheter - Yellow, clear urine - Outputs as documented. Positive, palpable pulses. Sternal incision - Intact - Surgical
adhesive - Open to air. Surgical bra. Patient with no c/o back or flank pain. Assessment as documented.
[2024-11-28] MEDS: CRESTOR 5 MG PO (22:40)
[2024-11-29] VITALS (13 sets, daily range): BP systolic 100–144; BP diastolic 59–74; PULSE 77; O2SAT 93–95; BMI 35.3
--- NOTE | 2024-11-29 00:30 | PTCARENOTE ---
Patient sleeping without difficulty. No further changes from previous assessment.
--- NOTE | 2024-11-29 00:59 | W.PN.CT ---
Addendum entered and electronically signed by Kuldeep Resendiz MD 11/29/24 09:42:
I saw and examined the patient.
The PA's note was reviewed and I agree with the note.
Comment:
POD#3 s/p AVR (#23 Inspiris) w/ root enlargement
No major overnight events. Afebrile. 73 sinus. 100-130s/60-70s. 96% 2L
GTTS: none. No drains. UO: 2510/last 24 hours. LOLA resolved. Creat 0.8. Hgb 8.9
- Wean O2 as tolerated
- OOB/IS/ambulate
- D/C planning for 1-2 days
Original Note:
Today's Communication / Plan
-
Plan:
-No major issues overnight. Hemodynamically and neurologically intact
-Off all drips
-Acute postop hypotension is improved, Midodrine transitioned to PRN
-Switched from Lopressor to Toprol XL
-Received 1u PRBC for h/h 8.0/25.5 yesterday, h/h 8.9/27.1 today
-Postop LOLA has resolved, 0.8 creatinine peaked @ 1.3, was 0.7 preop, 1.1 yesterday
-Gentle diuresis, 24hr u/o 2510 mL
-Cont. current meds (ASA, Amiodarone, Toprol XL, Synthroid, Crestor, Zoloft, Lasix), on Amoxicillin for recent root canal - to be completed on 12/01
-Encourage use of IS
-OOB into ambulate
-Home in 1-2 days
]
Assessment / Plan
-
- Severe aortic valve stenosis with mild insufficiency and small sinuses and small annulus- s/p Surgical aortic valve replacement [23 mm Dorsey Inspiris Resilia bioprosthesis]; Aortic root enlargement with aortoplasty, Nicks De La Garza type enlargement
onto the anterior leaflet the mitral valve using a bovine pericardial patch by Dr. Barragan on 11/26/24, pod #3
- Intraop JOAQUÍN: LVEF preop was 65% with no significant regional wma. Following surgery, EF remained the same if not hyperdynamic to 70% with some obliteration of her LV cavity. She had a small LVOT with some septal prominence that was concerning
for possible PINA physiology in the future. Mean gradient across her aortic valve while she was hyperdynamic was 12 mmHg.
- Moderate to severe left ventricular hypertrophy, chronic diastolic dysfunction
- Hypertension
- Hyperlipidemia
- Anxiety/depression
- Osteopenia
- Class 1 obesity (BMI 34)
- EtOH use
- Acute postop blood loss anemia
- Acute postop thrombocytopenia
- Acute postop atelectasis/pulmonary insufficiency
- Acute postop hypovolemia with subsequent hypervolemia
- Acute postop hypotension - on Midodrine
- Acute postop LOLA
Discussed patient care with: Cardiology, Nursing, Respiratory Therapy, Pharmacy and Care Team
Subjective
-
Date of Service: November 29, 2024
Pt c/o mild incisional pain, otherwise feels well
Objective Data
-
PT 19.5 Sec (11.4-14.6) H 11/26/24 11:15
INR 1.60 11/26/24 11:15
APTT 32.6 Sec (23.4-35.0) 11/26/24 11:15
Vital Signs
Vital Signs
Temp Pulse Resp BP Pulse Ox
98.9 F 67 16 120/76 96
11/28/24 22:35 11/29/24 00:00 11/28/24 22:35 11/28/24 22:40 11/28/24 22:35
CT Intake/Output/Weight
11/28/24 11/28/24 11/29/24
06:59 18:59 06:59
Intake Total 600 / 840 240 / 840
Output Total 1090 / 1515 1360 / 2310 950 / 2310
Balance -1090 / -390.1 -760 / -1470 -710 / -1470
SaO2: 96 (2L)
Physical Exam
-
General: Awake, Oriented and AOx3
Cardiovascular: Regular rate & rhythm, No Murmurs, No Rub and No Gallop
Respiratory: Decreased Breath Sounds (at bases, otherwise clear)
Sternum: Stable
Incision: Clean, Dry, Intact and Dressing Intact
Extremities: Other (+trace edema)
Data Reviewed
-
Lab Results: Results Reviewed
Medications: Active Meds Reviewed
Chest X-Ray: Report Reviewed and Image Reviewed
ECG: Report Reviewed and Image Reviewed
[2024-11-29] MEDS: ROXICODONE 5 MG PO ×2 (05:54→22:41)
[2024-11-29] MEDS: TYLENOL 975 MG PO ×3 (05:54→20:49)
[2024-11-29] MEDS: SYNTHROID 125 MCG PO (05:54)
--- NOTE | 2024-11-29 06:00 | PTCARENOTE ---
Patient A+A+Ox3. No neurological deficits noted. Roxicodone 5mg PO for pain management. AM labs collected and sent. CHG bath and linens changed. Moncada catheter care. Portable CXR completed. OOB to chair. Standing scale weight 96.3 kg.
Assessment/Interventions as documented.
[2024-11-29 06:39] LABS: Hematocrit 27.3 % (37.0-47.0); Hemoglobin 8.9 g/dL (12.0-16.0); Mean Corp Hgb Conc. 32.6 g/dL (33.0-37.0); Mean Corpuscular Volume 93.5 fL (81.0-99.0); Platelet Count 116 10^3/uL (130-400); Red Cell Dist. Width 13.6 % (11.5-14.5)
[2024-11-29 06:41] LABS: Blood Urea Nitrogen 18 mg/dl (7-17); Calcium 8.3 mg/dl (8.4-10.2); Carbon Dioxide 29 mmol/L (22-30); Chloride 103 mmol/L (98-107); Estimated Creatinine Clearance 73 ml/min; Glucose 118 mg/dl (70-99); Magnesium 2.4 mg/dl (1.6-2.3); Potassium 4.5 mmol/L (3.5-5.1); Sodium 136 mmol/L (135-145); eGFR > 60.00
[2024-11-29] MEDS: CALCIUM GLUCONATE 130 MG IV (07:51)
[2024-11-29] MEDS: LASIX 20 MG IV (07:52)
[2024-11-29] MEDS: KCL 20 MEQ PO (07:52)
[2024-11-29] MEDS: BACTROBAN 2% OINTMENT 1 APPLIC NASAL ×2 (07:52→20:47)
[2024-11-29] MEDS: SENOKOT 8.6 MG PO ×2 (07:53→20:48)
[2024-11-29] MEDS: ZOLOFT 50 MG PO (07:53)
[2024-11-29] MEDS: LIDOCAINE 4% PATCH 1 PATCH TOPICAL (07:53)
[2024-11-29] MEDS: NEURONTIN 100 MG PO ×3 (07:53→22:41)
[2024-11-29] MEDS: PROTONIX 40 MG PO (07:53)
[2024-11-29] MEDS: PACERONE 200 MG PO ×3 (07:53→22:42)
[2024-11-29] MEDS: TOPROL XL 12.5 MG PO ×2 (07:53→20:49)
[2024-11-29] MEDS: MAGNESIUM OXIDE PO ×2 (07:54→20:39)
[2024-11-29] MEDS: NON-FORMULARY ITEM 1 UNIT PO ×2 (07:54→20:48)
[2024-11-29] MEDS: NSS IV (07:55)
[2024-11-29] MEDS: LOW STRENGTH ASPIRIN 81 MG PO (07:58)
--- NOTE | 2024-11-29 08:15 | PTCARENOTE ---
Assumed care of pt from dayshift RN. Walking rounds completed. Pt is AAOx3. OOB to the chair. SR on the tele monitor. HR 70s. BP stable. Palpable pulses throughout. B/L +1 ankle edema. Trace B/L hand. Pt on 2 L NC. POX 94%. Lung sounds diminished in
the bases. Deep breathing and IS encouraged. Abdomen nontender. +BS x4. Moncada catheter intact and draining clear/yellow urine. All surgical sites stable. PIV x2 intact. Calcium gluconate administered as ordered. See worklist for full nursing
assessment and interventions. Call harrington within reach.
--- NOTE | 2024-11-29 12:35 | PTCARENOTE ---
No acute changes in assessment. Pt is SR on the tele monitor. Brief run of sinus tach but broke after a few beats. HR 70s. BP stable. Pt on RA. POX 89-95%. Moncada catheter intact and draining yellow urine. Pt ambulated in [place] x2. First walk in [place]
w/ O2 , then no O2 for the second walk. No c/o pain at this time. Call harrington within reach.
[2024-11-29] MEDS: FERRLECIT 110 MG IV (13:51)
--- NOTE | 2024-11-29 16:30 | PTCARENOTE ---
No acute change in assessment. Pt is SR on the tele monitor. VSS. Rodriguez catheter draining yellow urine. Contacted CTNP about removing rodriguez. No c/o pain at this time. IV team at the bedside for new lines. Call harrington within reach.
[2024-11-29] MEDS: REMOVE LIDOCAINE PATCH 1 PATCH REMOVE (20:48)
--- NOTE | 2024-11-29 21:00 | PTCARENOTE ---
Patient received OOB in chair. Family at bedside. Patient A+A+Ox3. No neurological deficits noted. No c/o headache, dizziness or lightheadedness. Room air. SpO2 91%. No c/o SOB. Chest tube dressing intact. Sinus Rhythm. Heart rate 70's.
Blood pressure 117/71 (86). Patient with no c/o chest pain, pressure or discomfort. Normoactive bowel sounds. No BM. No c/o nausea. Moncada catheter intact - Outputs as documented. Sternal incision intact. Surgical bra. Positive, palpable
pulses. Afebrile. Assessment as documented.
[2024-11-29] MEDS: CRESTOR 5 MG PO (22:41)
[2024-11-30] VITALS (9 sets, daily range): BP systolic 102–136; BP diastolic 67–83; O2SAT 88–92; BMI 35.2
--- NOTE | 2024-11-30 00:30 | PTCARENOTE ---
Patient sleeping without difficulty. No further changes from previous assessment.
--- NOTE | 2024-11-30 04:43 | W.PN.CT ---
Addendum entered and electronically signed by Kuldeep Resendiz MD 11/30/24 09:36:
I saw and examined the patient.
The PA's note was reviewed and I agree with the note.
Comment:
POD#4
No major overnight events. Afebrile. 70s sinus. 120-140/60-70s. 94% RA. No gtts. No drains. UO: 2500/last 24 hours - rodriguez D/C'd at 6:30AM today
- Check 2v CXR
- F/U for void post rodriguez removal
- Continue current medications: ASA, Toprol XL, Amio
- Continue Amoxicillin until 12/01
- D/C planning for later today vs. tomorrow
Original Note:
Today's Communication / Plan
-
Plan:
-No major issues overnight. Hemodynamically and neurologically intact
-Off all drips
-Acute postop hypotension has resolved. Midodrine transitioned to PRN
-Switched from Lopressor to Toprol XL
-Received 1u PRBC for h/h 8.0/25.5 on 11/28, h/h stable @ 9.3/28.6 today
-Postop LOLA has resolved, 0.7 creatinine peaked @ 1.3, was 0.7 preop, 1.1 yesterday
-D/C'd rodriguez catheter this AM @ 0630
-Gentle diuresis, 24hr u/o 2500 mL
-Cont. current meds (ASA, Amiodarone, Toprol XL, Synthroid, Crestor, Zoloft, Lasix), on Amoxicillin for recent root canal - to be completed on 12/01
-F/U 2-view cxr
-Encourage use of IS
-OOB into ambulate
-Home in later today vs tomorrow
]
Assessment / Plan
-
- Severe aortic valve stenosis with mild insufficiency and small sinuses and small annulus- s/p Surgical aortic valve replacement [23 mm Dorsey Inspiris Resilia bioprosthesis]; Aortic root enlargement with aortoplasty, Nicks De La Garza type enlargement
onto the anterior leaflet the mitral valve using a bovine pericardial patch by Dr. Barragan on 11/26/24, pod #4
- Intraop JOAQUÍN: LVEF preop was 65% with no significant regional wma. Following surgery, EF remained the same if not hyperdynamic to 70% with some obliteration of her LV cavity. She had a small LVOT with some septal prominence that was concerning
for possible PINA physiology in the future. Mean gradient across her aortic valve while she was hyperdynamic was 12 mmHg.
- Moderate to severe left ventricular hypertrophy, chronic diastolic dysfunction
- Hypertension
- Hyperlipidemia
- Anxiety/depression
- Osteopenia
- Class 1 obesity (BMI 34)
- EtOH use
- Acute postop blood loss anemia
- Acute postop thrombocytopenia
- Acute postop atelectasis/pulmonary insufficiency
- Acute postop hypovolemia with subsequent hypervolemia
- Acute postop hypotension - on Midodrine
- Acute postop LOLA
Discussed patient care with: Cardiology, Nursing, Respiratory Therapy, Pharmacy and Care Team
Subjective
-
Date of Service: November 30, 2024
Pt c/o mild incisional pain, otherwise feels well. Ambulating halls without difficulty
Objective Data
-
PT 19.5 Sec (11.4-14.6) H 11/26/24 11:15
INR 1.60 11/26/24 11:15
APTT 32.6 Sec (23.4-35.0) 11/26/24 11:15
Vital Signs
Vital Signs
Temp Pulse Resp BP Pulse Ox
98.9 F 67 16 144/67 91
11/29/24 22:35 11/30/24 02:00 11/29/24 22:35 11/29/24 22:42 11/29/24 22:35
CT Intake/Output/Weight
11/29/24 11/29/24 11/30/24
06:59 18:59 06:59
Intake Total 240 / 840 240 / 240
Output Total 1575 / 2935 1450 / 2500 1050 / 2500
Balance -1335 / -2095 -1450 / -2260 -810 / -2260
SaO2: 91 (RA)
Physical Exam
-
General: Awake, Oriented and AOx3
Cardiovascular: Regular rate & rhythm, No Murmurs, No Rub and No Gallop
Respiratory: Decreased Breath Sounds (at bases, otherwise clear)
Sternum: Stable
Incision: Clean, Dry, Intact and Dressing Intact
Extremities: Edema +1
Data Reviewed
-
Lab Results: Results Reviewed
Medications: Active Meds Reviewed
Chest X-Ray: Report Reviewed and Image Reviewed
ECG: Report Reviewed and Image Reviewed
[2024-11-30] MEDS: SYNTHROID 125 MCG PO (05:38)
[2024-11-30] MEDS: ROXICODONE 5 MG PO (05:38)
[2024-11-30] MEDS: TYLENOL 975 MG PO ×2 (05:38→19:58)
[2024-11-30 06:16] LABS: Hematocrit 28.6 % (37.0-47.0); Hemoglobin 9.3 g/dL (12.0-16.0); Mean Corp Hgb Conc. 32.5 g/dL (33.0-37.0); Mean Corpuscular Volume 93.2 fL (81.0-99.0); Platelet Count 145 10^3/uL (130-400); Red Cell Dist. Width 13.4 % (11.5-14.5)
[2024-11-30 06:34] LABS: Blood Urea Nitrogen 16 mg/dl (7-17); Calcium 9.0 mg/dl (8.4-10.2); Carbon Dioxide 31 mmol/L (22-30); Chloride 104 mmol/L (98-107); Estimated Creatinine Clearance 83 ml/min; Glucose 108 mg/dl (70-99); Magnesium 2.3 mg/dl (1.6-2.3); Potassium 4.4 mmol/L (3.5-5.1); Sodium 138 mmol/L (135-145); eGFR > 60.00
--- NOTE | 2024-11-30 06:40 | PTCARENOTE ---
Patient A+A+Ox3. No neurological deficits noted. AM lab work collected and sent. Patient given CHG bath and linens changed. Surgical bra removed. New surgical bra given to patient. Patient's Moncada catheter removed at 0630 without difficulty.
Due to void at 12:30pm. Patient ambulated to bathroom with minimal assistance. Washed face and brushed teeth. Standing scale weight 96kg. OOB to chair. Assessment/Interventions as documented.
--- NOTE | 2024-11-30 08:30 | PTCARENOTE ---
Patient received from re etcher RN; AAOx3, responds spontaneously to RN and follows commands; VSS; NSR on monitor; +1 B/L Ankle edema; +2 DP and radial pulses; Shallow respirations; SpO2 90-92% on RA; Lungs diminished at bases; IS 1000 ml; DTV;
PRN Milk of Magnesia given for constipation; Surgical incisions intact; PIVx2; See nursing documentation for further details
[2024-11-30] MEDS: NON-FORMULARY ITEM 1 UNIT PO ×2 (08:34→20:00)
[2024-11-30] MEDS: TOPROL XL 12.5 MG PO ×2 (08:34→19:58)
[2024-11-30] MEDS: BACTROBAN 2% OINTMENT 1 APPLIC NASAL (08:34)
[2024-11-30] MEDS: SENOKOT 8.6 MG PO ×2 (08:35→19:59)
[2024-11-30] MEDS: MAGNESIUM OXIDE 400 MG PO ×2 (08:35→19:58)
[2024-11-30] MEDS: NEURONTIN 100 MG PO ×3 (08:35→21:35)
[2024-11-30] MEDS: ZOLOFT 50 MG PO (08:35)
[2024-11-30] MEDS: NSS IV (08:35)
[2024-11-30] MEDS: PACERONE 200 MG PO ×3 (08:35→21:35)
[2024-11-30] MEDS: LIDOCAINE 4% PATCH TOPICAL (08:35)
[2024-11-30] MEDS: LOW STRENGTH ASPIRIN 81 MG PO (08:35)
[2024-11-30] MEDS: PROTONIX 40 MG PO (08:35)
[2024-11-30] MEDS: LASIX 20 MG IV ×2 (09:24→16:08)
[2024-11-30] MEDS: KCL 20 MEQ PO (09:24)
--- NOTE | 2024-11-30 12:00 | PTCARENOTE ---
IV Lasix 20 mg and PO Potassium Chloride 20 mEq ordered and given; 2 view CXR completed; Patient ambulating in hallways with RN and SOB at end of walk - SpO2 88% on RA and placed on 2L NC; Patient resting comfortably in chair
--- NOTE | 2024-11-30 12:06 | W.PN.CARDCBS ---
Today's Communication / Plan
-
Further diuresis
Supportive postop care
Discussed with CT surgery PA
Impression / Plan
-
Primary Records Analyst: Dr. Lee of [facility]
Assessment:
Severe symptomatic s/p bioprosthetic AVR #23mm and aortic root enlargement with aortoplasty 11/26/24
LVH
Severe symptomatic
HTN
HLD
Hypothyroidism
Asthma
OA of B/L knees
Anxiety/depression
Obesity
ECHO 07/23/2024: EF 60 to 65%, peak/mean gradients 92/58 mmHg with HERI 0.83 cm�, mild AI, mild MAC, trace MR, RVSP 20.8 mmHg
Plan:
s/p Surgical aortic valve replacement [23 mm Dorsey Inspiris Resilia bioprosthesis]; Aortic root enlargement with aortoplasty, Nicks De La Garza type enlargement onto the anterior leaflet the mitral valve using a bovine pericardial patch by Dr. Barragan on
11/26/24
-Patient reporting shortness of breath with nursing stating that during unit ambulation she desatted to 88%
-Spoke with CT surgery PA -patient appears volume overloaded and would benefit for more IV Lasix.
-Monitor telemetry. Brief runs SVT/PAT and brief run of A-fib on 11/26.
-Amoxicillin until 12/01
-Continue postop care, IS/OOB
-OP follow up for [facility]
Progress Note - Records Analyst
Subjective
Date of Service: November 30, 2024
Seen and examined. Patient out of bed to chair. Chart/telemetry reviewed.
Objective
Labs:
11/30/24 06:02
11/30/24 06:02
Labs
Hgb 9.3 g/dL (12.0-16.0) L 11/30/24 06:02
Hct 28.6 % (37.0-47.0) L 11/30/24 06:02
Plt Count 145 10^3/uL (130-400) D 11/30/24 06:02
PT 19.5 Sec (11.4-14.6) H 11/26/24 11:15
INR 1.60 11/26/24 11:15
APTT 32.6 Sec (23.4-35.0) 11/26/24 11:15
Sodium 138 mmol/L (135-145) 11/30/24 06:02
Potassium 4.4 mmol/L (3.5-5.1) 11/30/24 06:02
BUN 16 mg/dl (7-17) 11/30/24 06:02
Creatinine 0.7 mg/dL (0.6-1.0) 11/30/24 06:02
Glucose 108 mg/dl (70-99) H 11/30/24 06:02
Vital Signs and I&O:
Vital Signs
Temp Pulse Resp BP Pulse Ox
98.4 F 77 16 122/70 92
11/30/24 08:32 11/30/24 11:00 11/30/24 08:32 11/30/24 09:24 11/30/24 10:45
Vital Signs
Temp Pulse Resp BP Pulse Ox
98.4 F 77 16 122/70 92
11/30/24 08:32 11/30/24 11:00 11/30/24 08:32 11/30/24 09:24 11/30/24 10:45
Intake & Output
11/28/24 11/29/24 11/30/24 12/01/24
06:59 06:59 06:59 06:59
Intake Total 1124.9 / 1124.9 840 / 840 240 / 240 360 / 360
Output Total 1515 / 1515 2935 / 2935 3050 / 3050 525 / 525
Balance -390.1 / -390.1 -2095 / -2095 -2810 / -2810 -165 / -165
Physical Exam
Physical Exam
General: No acute distress, AAOX3
Heart: Regular, positive S1/S2No murmur
Lungs: Bronchovesicular breath sounds, decreased.
Abd: Mildly distended. Positive bowel sounds. Nontender.
Ext: ++ 1 edema
[2024-11-30 13:07] LABS: Glucose - Point of Care 114 mg/dl (70-99)
[2024-11-30] MEDS: TYLENOL PO (15:40)
--- NOTE | 2024-11-30 17:19 | PTCARENOTE ---
IV Lasix 20 mg ordered and given; CHG shower completed; Patient ambulating in hallways and less SOB compared to earlier - SpO2 92% at the end of walk
[2024-11-30] MEDS: REMOVE LIDOCAINE PATCH REMOVE (19:59)
--- NOTE | 2024-11-30 20:15 | PTCARENOTE ---
Patient received from previous RN; AAOx3, VSS; NSR on monitor; +1 B/L Ankle edema; +2 DP and radial pulses; Shallow respirations; SpO2 90-92% on RA; Lungs diminished at bases; IS 1000 ml; coughing and deep breathing encouraged. pt voiding
spontaneously in bathroom. Surgical incisions intact; PIVx2 intact.; plan of care discussed and questions encouraged. call harrington within reach. See nursing documentation for further details
[2024-11-30] MEDS: CRESTOR 5 MG PO (21:35)
[2024-12-01 04:57] VITALS: BP 153/70
[2024-12-01] MEDS: KCL 20 MEQ PO (05:07)
[2024-12-01] MEDS: LASIX 40 MG IV ×2 (05:07→08:00)
[2024-12-01 05:18] VITALS: BMI 34.9
[2024-12-01] MEDS: TYLENOL 975 MG PO (05:19)
[2024-12-01 05:35] LABS: Blood Urea Nitrogen 13 mg/dl (7-17); Calcium 8.6 mg/dl (8.4-10.2); Carbon Dioxide 30 mmol/L (22-30); Chloride 104 mmol/L (98-107); Estimated Creatinine Clearance 83 ml/min; Glucose 107 mg/dl (70-99); Magnesium 2.3 mg/dl (1.6-2.3); Potassium 3.9 mmol/L (3.5-5.1); Sodium 139 mmol/L (135-145); eGFR > 60.00
[2024-12-01 05:42] LABS: Hematocrit 27.3 % (37.0-47.0); Hemoglobin 8.9 g/dL (12.0-16.0); Mean Corp Hgb Conc. 32.6 g/dL (33.0-37.0); Mean Corpuscular Volume 92.5 fL (81.0-99.0); Platelet Count 185 10^3/uL (130-400); Red Cell Dist. Width 13.3 % (11.5-14.5)
--- NOTE | 2024-12-01 05:56 | W.PN.CT ---
Today's Communication / Plan
-
Plan:
-No major issues overnight. Hemodynamically and neurologically intact
-Off all drips
-Acute postop hypotension has resolved. Midodrine transitioned to PRN
-Switched from Lopressor to Toprol XL
-Received 1u PRBC for h/h 8.0/25.5 on 11/28, h/h stable @ 8.9/27.3 today
-Postop LOLA has resolved, 0.7 creatinine peaked @ 1.3, was 0.7 preop
-D/C'd rodriguez catheter yesterday 11/30 AM @ 0630
-Cont. diuresis, will likely benefit from home Lasix, noted to have LE pitting edema
-Cont. current meds (ASA, Amiodarone, Toprol XL, Synthroid, Crestor, Zoloft, Lasix), on Amoxicillin for recent root canal - to be completed on 12/01
-Encourage use of IS
-OOB into ambulate
-Home today
]
Assessment / Plan
-
- Severe aortic valve stenosis with mild insufficiency and small sinuses and small annulus- s/p Surgical aortic valve replacement [23 mm Dorsey Inspiris Resilia bioprosthesis]; Aortic root enlargement with aortoplasty, Nicks De La Garza type enlargement
onto the anterior leaflet the mitral valve using a bovine pericardial patch by Dr. Barragan on 11/26/24, pod #5
- Intraop JOAQUÍN: LVEF preop was 65% with no significant regional wma. Following surgery, EF remained the same if not hyperdynamic to 70% with some obliteration of her LV cavity. She had a small LVOT with some septal prominence that was concerning
for possible PINA physiology in the future. Mean gradient across her aortic valve while she was hyperdynamic was 12 mmHg.
- Moderate to severe left ventricular hypertrophy, chronic diastolic dysfunction
- Hypertension
- Hyperlipidemia
- Anxiety/depression
- Osteopenia
- Class 1 obesity (BMI 34)
- EtOH use
- Acute postop blood loss anemia
- Acute postop thrombocytopenia
- Acute postop atelectasis/pulmonary insufficiency
- Acute postop hypovolemia with subsequent hypervolemia
- Acute postop hypotension - on Midodrine
- Acute postop LOLA
Discussed patient care with: Cardiology, Nursing, Respiratory Therapy, Pharmacy and Care Team
Subjective
-
Date of Service: December 01, 2024
C/O mild incisional pain, otherwise feels well. Ambulating halls without difficulty
Objective Data
-
Lab Results
12/01/24 05:05
12/01/24 05:05
PT 19.5 Sec (11.4-14.6) H 11/26/24 11:15
INR 1.60 11/26/24 11:15
APTT 32.6 Sec (23.4-35.0) 11/26/24 11:15
Vital Signs
Vital Signs
Temp Pulse Resp BP Pulse Ox
98.9 F 73 18 153/70 93
12/01/24 04:57 12/01/24 05:00 12/01/24 04:57 12/01/24 04:57 12/01/24 04:57
CT Intake/Output/Weight
11/30/24 11/30/24 12/01/24
06:59 18:59 06:59
Intake Total 240 / 240 840 / 840
Output Total 1600 / 3050 1625 / 2875 1250 / 2875
Balance -1360 / -2810 -785 / -2035 -1250 / -2034
SaO2: 93 (RA)
Physical Exam
-
General: Awake, Oriented and AOx3
Cardiovascular: Regular rate & rhythm, No Murmurs, No Rub and No Gallop
Respiratory: Decreased Breath Sounds (at bases, otherwise clear )
Sternum: Stable
Incision: Clean, Dry, Intact and Dressing Intact
Extremities: Edema +1
Data Reviewed
-
Lab Results: Results Reviewed
Medications: Active Meds Reviewed
Chest X-Ray: Report Reviewed and Image Reviewed
ECG: Report Reviewed and Image Reviewed
[2024-12-01 07:31] VITALS: BP 139/68
[2024-12-01] MEDS: LIDOCAINE 4% PATCH TOPICAL (07:59)
[2024-12-01] MEDS: SYNTHROID 125 MCG PO (08:00)
[2024-12-01] MEDS: NEURONTIN 100 MG PO (08:00)
[2024-12-01] MEDS: PROTONIX 40 MG PO (08:00)
[2024-12-01] MEDS: ZOLOFT 50 MG PO (08:00)
[2024-12-01] MEDS: KCL 40 MEQ PO (08:01)
[2024-12-01] MEDS: TOPROL XL 25 MG PO (08:01)
[2024-12-01] MEDS: PACERONE 200 MG PO (08:02)
[2024-12-01] MEDS: LOW STRENGTH ASPIRIN 81 MG PO (08:03)
[2024-12-01] MEDS: SENOKOT 8.6 MG PO (08:03)
[2024-12-01] MEDS: MAGNESIUM OXIDE 400 MG PO (08:03)
[2024-12-01] MEDS: NON-FORMULARY ITEM 1 UNIT PO (08:04)
--- NOTE | 2024-12-01 08:56 | W.PN.CARDCBS ---
Addendum entered and electronically signed by Palma Heath DO 12/01/24 13:12:
I saw and examined the patient.
The Engraver Lettering's note was reviewed and I agree with the note.
Comment:
Plan:
s/p Surgical aortic valve replacement [23 mm Dorsey Inspiris Resilia bioprosthesis]; Aortic root enlargement with aortoplasty, Nicks De La Garza type enlargement onto the anterior leaflet the mitral valve using a bovine pericardial patch by Dr. Barragan on
11/26/24
-Shortness of breath is improved and weight is down 2 pounds with IV Lasix. Patient states that she worked with physical therapy and was able to complete stairs and ambulation in the hallways without difficulty. Plan for discharge home today
-Patient will be discharged on 40 mg p.o. twice daily for 3 days 40 mg once daily until otherwise directed by her outpatient finishing supervisor plastic sheets
-Amoxicillin until 12/01
-Continue postop care, IS/OOB
-Cardiac rehab
- Outpatient follow-up with [facility]
Original Note:
Today's Communication / Plan
-
discharge on oral Lasix
f/u at [facility] arranged
Impression / Plan
-
Primary Vocational Aide: Dr. Lee of [facility]
Assessment:
Severe symptomatic s/p bioprosthetic AVR #23mm and aortic root enlargement with aortoplasty 11/26/24
LVH
Severe symptomatic
HTN
HLD
Hypothyroidism
Asthma
OA of B/L knees
Anxiety/depression
Obesity
ECHO 07/23/2024: EF 60 to 65%, peak/mean gradients 92/58 mmHg with HERI 0.83 cm�, mild AI, mild MAC, trace MR, RVSP 20.8 mmHg
Plan:
-POD 5 s/p Surgical aortic valve replacement [23 mm Dorsey Inspiris Resilia bioprosthesis]; Aortic root enlargement with aortoplasty, Nicks De La Garza type enlargement onto the anterior leaflet the mitral valve using a bovine pericardial patch by .
Barragan on 11/26/24
-vol overloaded 11/30 s/p Lasix IV, wt down 2 lbs overnight, discharge on PO Lasix.
-has mild LE edema on exam, no SOB
-telemetry personally reviewed: NSR 80s, no afib
-Amoxicillin until 12/01
-Continue postop care, IS/OOB
-Prior to admission was on Norvasc 7.5 mg nightly, Cozaar 100 mg nightly and Toprol 50 mg nightly. Currently on Toprol 25 mg daily.
-hypotension postoperatively and required Midodrine - now off and BPs 130s/68
-resume antihypertensive in outpt setting as needed
-creat 0.7
-ok for discharge
-OP follow up for ATC Dr Lee, but pt considering switching to [facility] due to Dr Lee office moving to [facility]. Has name of Dr Geller from [facility]. Currently has f/u at [facility] on 01/07/2025
Progress Note - Vocational Aide
Subjective
Date of Service: December 01, 2024
-SOB resolved
-energy level improved
-maintaining NSR
Objective
Labs:
12/01/24 05:05
12/01/24 05:05
Labs
Hgb 8.9 g/dL (12.0-16.0) L 12/01/24 05:05
Hct 27.3 % (37.0-47.0) L 12/01/24 05:05
Plt Count 185 10^3/uL (130-400) D 12/01/24 05:05
PT 19.5 Sec (11.4-14.6) H 11/26/24 11:15
INR 1.60 11/26/24 11:15
APTT 32.6 Sec (23.4-35.0) 11/26/24 11:15
Sodium 139 mmol/L (135-145) 12/01/24 05:05
Potassium 3.9 mmol/L (3.5-5.1) 12/01/24 05:05
BUN 13 mg/dl (7-17) 12/01/24 05:05
Creatinine 0.7 mg/dL (0.6-1.0) 12/01/24 05:05
Glucose 107 mg/dl (70-99) H 12/01/24 05:05
Vital Signs and I&O:
Vital Signs
Temp Pulse Resp BP Pulse Ox
98.7 F 86 18 139/68 94
12/01/24 07:38 12/01/24 08:01 12/01/24 07:38 12/01/24 08:01 12/01/24 07:38
Vital Signs
Temp Pulse Resp BP Pulse Ox
98.7 F 86 18 139/68 94
12/01/24 07:38 12/01/24 08:01 12/01/24 07:38 12/01/24 08:01 12/01/24 07:38
Intake & Output
11/29/24 11/30/24 12/01/24 12/02/24
06:59 06:59 06:59 06:59
Intake Total 840 / 840 240 / 240 840 / 840 240 / 240
Output Total 2935 / 2935 3050 / 3050 2875 / 2875
Balance -2094 / -2094 -2810 / -281 -2034 / -2034 240 / 240
Physical Exam
Physical Exam
GEN: No distress, awake, Ox3
HEENT: supple, anicteric, mmm
LUNGS: CTA, no wheezes/rales
CV: Reg, S1/S2, 1/6 syst LSB, no murmur
ABD: soft, BS+, NT/ND
EXT: 1+ B/L LE edema
NEURO: Gross non-focal
SKIN: sternal incision healing, scab on L griffith (pre-dates hospitalization)
--- NOTE | 2024-12-01 09:32 | W.DCSUMMARY ---
Discharge Summary
Discharge Data
Date of Admission: 11/26/24
Date of Discharge: 12/01/24
-
Pending Results: No
Hospital Course
Primary care physician: Dr. Barbara Kennedy
Outpatient executive admin: Dr. Isiah Jordan
Inpatient consultants: [facility], Digital Advertising Specialist/Pulmonary
Procedures:
1. AVR (#23 mm Dorsey Insipiris Resilia bioprosthesis) with Aortic Root Enlargement with aortoplasty, bovine patch
Primary Diagnosis:
1. Severe Aortic Stenosis with mild aortic insufficiency
Secondary Diagnoses:
1. Acute postop blood-loss anemia
2. Acute postop thrombocytopenia
3. Acute postop atelectasis/pulmonary insufficiency
4. Acute hypovolemia with subsequent hypervolemia
5. Acute postop hypotension
6. Acute post-op LOLA (peak Cr 1.3, baseline 0.7 pre-op)
7. Hypertension
8. Hypothyroidism
9. Osteoarthritis
10. Hyperlipidemia
11. Anxiety/depression
12. Osteopenia
13. ETOH use
HPI: Ms. Lorena Ansari is a 74-year-old female with a PMH of who presented for outpatient consultation with Dr. Rafa Barragan for consideration of SAVR. Please refer to physicians pre-operative H & P for complete presentation prior to
surgery. Ms. Ansari was found to have severe with mild AI and small coronary sinuses and small annulus in which she was referred for SAVR. Patient was admitted for elective AVR with aortic root enlargement and bovine patch on 11/26/24.
Hospital course: Ms. Lorena Winkler is a 74-year-old female with a PMH of severe , HTN, HLD, hypothyroidism, OA, and ETOH use who presented as an outpatient on 11/03/24 with complaints of shortness of breath going up stairs and fatigue. She
was found to have severe with mild AI in which SAVR was recommenced. On 11/26/24, patient underwent a AVR (#23 mm Dorsey Insipiris Resilia bioprosthesis) with Aortic Root Enlargement with aortoplasty, bovine patch with Dr. Rafa Barragan.
Intraoperative JOAQUÍN reported preoperative LVEF of 65% with NRWMA, postoperatively showed same EF/hyperdynamic with LVEF 70% with some obliteration of LV cavity, small LVOT with some septal prominence, concerning for possible PINA physiology, and AV MG
12 mmHg. Please see surgeons record for complete dictation of surgery. In progressive fashion, inotropic support, vasopressor support, central lines, chest tubes, and epicardial pacing wires were discontinued. An insulin drop was initiated following
surgery and was transitioned to sliding-scale coverage on post-operative day 1. Postoperative course was complicated by acute hypovolemia with subsequent hypervolemia in with patient was diuresed with IV lasix. Patient developed acute post-op LOLA
with peak CR 1.3 from baseline of 0.7 which resolved on post-operative day 2. Acute post-operative thrombocytopenia with platelet low of 114 > 122 on post-op day 1 resolved on post-operative day 4 with platelet increase to 145, in with ASA 81 mg PO
daily was resumed. On postoperative day 5, she was tolerating her diet, ambulating, and hemodynamically stable for discharge. Pain was well-controlled with regimen of gabapentin 100 mg TID, Tylenol 1000 mg PO q6h PRN (as taken pre-op), and
Roxicodone 5 mg q6h PRN. She was 6 pounds above her preoperative weight of 92.3 kg, with weight of 95.2 kg on morning of discharge. She was discharged home with a plan to follow-up with Dr. Barragan in 4 weeks following surgery. Transitional care
nursing will follow-up with patient in 2 to 3 days following discharge. Importance of antibiotics prior to dental procedures for endocarditis prophylaxis was further shared to patient upon discharge.
Home medication changes:
- See list provided below
Discharge Plan
-
Patient Disposition: Home (Routine Discharge)
Discharge Diagnosis/Procedures: Aortic Valve Replacement with Root Enlargement (11/26/24)
Condition: Good
Diet: Low Cholesterol, Low Sodium and Restrict fluids to 48 oz
Activity: No strenuous activity
Driving Restrictions: Not until seen by your Dr
Bathing Restrictions: OK to Shower
Other Services: Cardiac Rehab
Wound Care: No lotions, creams, or powders on procedural sites. Keep open to air. Shower daily with soap and water.
Specialty Instructions: Weigh Daily- Call MD for wt gain/loss 3 lbs overnight/5 lbs in 1 week
Activity Restrictions/Additional Instructions:
ACTIVITY:
- No strenuous activity: no heavy lifting, pushing, pulling anything over 15 pounds for one month
- Continue to use stairs as tolerated
DRIVING RESTRICTIONS:
-No driving for one month or until approved by your surgeon
WOUND CARE:
-Shower daily. Use soap & water.
-No lotions, creams or powders on incision area.
DIET:
- Continue a low fat/low cholesterol diet.
- If you are diabetic, continue carb controlled diet.
CARDIAC REHAB:
- Please make appointment to start in 5-6 weeks with your local hospital program. (See Cardiac Rehabilitation Discharge Booklet).
- Please call to make appointments for Phase II Cardiac Rehab:
[facility] (6 min away)
[address] [place] [id number]
[phone]
SPECIALTY INSTRUCTIONS:
- Weigh yourself daily. Call your physician for any weight gain/loss of 3 lbs overnight or 5 lbs in one week.
- Follow medication instructions for furosemide (Lasix) and Potassium Chloride:
- Lasix 40 mg twice a day (8:00 AM and 4:00 PM) for 3-days, then take Lasix 40 mg daily (8:00 AM) for 4-days
- Potassium Chloride 20 mEq twice a day (8:00 AM and 4:00 PM) for 3-days, then take Potassium Chloride 20 mEq daily (8:00 AM) for 4-days
- REPORT any clicking noise or uneven appearance of your sternum to your surgeon immediately.
- If you smoke, you are instructed to quit. The [facility] smoking hotline phone number is [phone]
Referrals:
CT Transitional Care Nurse [Outside]
Referral Note: The Cardiothoracic Transitional Care Nurse will call you to set up a visit in 1-2 days.
Johana Miller PA-C [Specified Professional Personl, Cardiology] - 01/07/25 1:20 pm
Carly Marcano DO [Family Provider, [facility]]
Rafa Barragan MD [Active, Cardiac Surgery] - 12/29/24 2:00 pm
Prescriptions:
New
aspirin 81 mg Tablet,Chewable
81 mg PO DAILY Qty: 0 0RF
gabapentin 100 mg Capsule
100 mg PO TID 7 Days Qty: 21 0RF
furosemide 40 mg Tablet
40 mg PO BID AT 0800,1600 7 Days Qty: 14 0RF
Rx Instructions:
Take 40 mg twice a day for 3-days,then 40 mg daily for 4 days
potassium chloride 20 mEq Tablet,Er Particles/Crystals
20 meq PO BID AT 0800,1600 7 Days Qty: 14 0RF
Rx Instructions:
Take 20 mEq twice a day for 3-days, then 20 mEq daily for 4 days
sennosides [Kristen-da] 8.6 mg Tablet
8.6 mg PO [id number] PRN (Reason: Constipation) Qty: 0 0RF
oxycodone 5 mg Tablet
2.5 - 5 mg PO Q6HPRN PRN (Reason: Moderate Pain Unalleviated by Tylenol) Qty: 7 0RF
Continued
metoprolol succinate [Toprol XL] 50 MG tablet extended release 24 hr
50 mg PO HS
fluticasone propionate 1 SPRAY spray,suspension
2 spray intranasal PRN PRN (Reason: allergies)
melatonin 10 MG tablet
5 - 10 mg PO PRN PRN (Reason: insomnia)
albuterol sulfate 18 GM HFA aerosol inhaler
2 puff inhalation PRN PRN (Reason: SOB, Cough)
alendronate 70 mg Tablet
70 mg PO QWEEK
fexofenadine 180 mg Tablet
180 mg PO PRN PRN (Reason: sneezing, nasal congestion)
calcium carbonate [Calcium 600] 600 mg calcium (1,500 mg) Tablet
600 mg PO BID Qty: 0 0RF
ascorbic acid (vitamin C) [Vitamin C] 500 MG tablet
500 mg PO DAILY Qty: 0 0RF
levothyroxine 125 MCG tablet
125 mcg PO DAILY AT 0700 Qty: 0 0RF
sertraline 50 MG tablet
50 mg PO DAILY Qty: 0 0RF
rosuvastatin 5 MG tablet
5 mg PO HS Qty: 0 0RF
amoxicillin 875 mg Tablet
875 mg PO BID Qty: 0 0RF
Rx Instructions:
Last dose 12/01/24 in evening
acetaminophen [Tylenol Extra Strength] 500 mg Tablet
1,000 mg PO Q6H PRN (Reason: mild pain, headache, temperature > 101 F) Qty: 0 0RF
ibuprofen 200 mg Tablet
400 mg PO Q6H PRN (Reason: Pain) Qty: 0 0RF
Discontinued
meloxicam 15 MG tablet
15 mg PO PRN PRN (Reason: pain)
amlodipine [Norvasc] 5 MG tablet
7.5 mg PO HS
losartan [Cozaar] 100 MG tablet
100 mg PO HS
Discharge Orders:
Discharge Patient (As Directed); Ordered 12/01/24
Ordered By: Tamara Sultana
Care Plan Goals
Care Plan Goals:
Problem: Readiness for enhanced knowledge related to diagnosis and treatment plan
Goal: Understand your diagnosis and treatment plan needs, including medications if applicable.
Instructions: Know your diagnosis, underlying causes and treatment plan options, including medications if applicable. Consult with your health care team to learn about your diagnosis and treatment plan, including medications if applicable.
Discharge Date and Time
Print Language: ZAMBIAN
--- NOTE | 2024-12-01 09:48 | W.PN.UPDATE ---
Update Note
Progress Note Update
�Prescription History Report�: Checked the [place]- Prescription Drug Monitoring Program website, no red flags identified; safe to proceed with prescription.
[2024-12-01 10:09] VITALS: BP 120/88; BP 123/73; PULSE 80; O2SAT 95
[2024-12-01] MEDS: NSS IV (10:32)
--- NOTE | 2024-12-01 10:43 | PTCARENOTE ---
Pt AAox3 up in chair, got breakfast and meds, walked with PT up and down steps
== END 2024-12-01 12:34 | disposition home or self-care (01) | DRG 219 ==
LOC: IVU 05:16
PROVIDERS: Anesthesiology; Nurse Practitioner; Physician Assistant Medical; ADMITTING PHYSICIAN Thoracic Surgery (Cardiothoracic Vascular Surgery); CONSULT PHYSICIAN Internal Medicine Cardiovascular Disease; CONSULT PHYSICIAN Internal Medicine Critical Care Medicine; FAMILY PHYSICIAN Family Medicine
PROC: B24BZZ4 Ultrasonography of Heart with Aorta, Transesophageal (ICD-10-PCS; 2024-11-26)
PROC: 02RF08Z Replacement of Aortic Valve with Zooplastic Tissue, Open Approach (ICD-10-PCS; 2024-11-26)
PROC: 02UX08Z Supplement Thoracic Aorta, Ascending/Arch with Zooplastic Tissue, Open Approach (ICD-10-PCS; 2024-11-26)
PROC: 5A1221Z Performance of Cardiac Output, Continuous (ICD-10-PCS; 2024-11-26)
PROC: 30233N1 Transfusion of Nonautologous Red Blood Cells into Peripheral Vein, Percutaneous Approach (ICD-10-PCS; 2024-11-28)
DX: I35.2 Nonrheumatic aortic (valve) stenosis with insufficiency (principal); J95.1 Acute pulmonary insufficiency following thoracic surgery; D62 Acute posthemorrhagic anemia; J98.11 Atelectasis; N17.9 Acute kidney failure, unspecified; I47.10 Supraventricular tachycardia, unspecified; Q25.42 Hypoplasia of aorta; E78.5 Hyperlipidemia, unspecified; F32.A Depression, unspecified; F41.9 Anxiety disorder, unspecified; I10 Essential (primary) hypertension; E87.70 Fluid overload, unspecified; I95.81 Postprocedural hypotension; E86.1 Hypovolemia; I49.1 Atrial premature depolarization; D69.59 Other secondary thrombocytopenia; M85.80 Other specified disorders of bone density and structure, unspecified site; E66.9 Obesity, unspecified; Z68.33 Body mass index [BMI] 33.0-33.9, adult; E03.9 Hypothyroidism, unspecified; J45.20 Mild intermittent asthma, uncomplicated; I25.10 Atherosclerotic heart disease of native coronary artery without angina pectoris; R94.31 Abnormal electrocardiogram [ECG] [EKG]; R91.1 Solitary pulmonary nodule; J47.9 Bronchiectasis, uncomplicated; Y83.8 Other surgical procedures as the cause of abnormal reaction of the patient, or of later complication, without mention of misadventure at the time of the procedure; Z87.891 Personal history of nicotine dependence; Z82.49 Family history of ischemic heart disease and other diseases of the circulatory system; I48.91 Unspecified atrial fibrillation
CPT/HCPCS: 36415; 71045; 71046; 80048; 80053; 81003; 82248; 82330; 82565; 82805; 82810; 82947; 82962; 83036; 83735; 84132; 84302; 84520; 85014; 85018; 85025; 85027; 85049; 85610; 85730; 86803; 86850; 86900; 86901; 86920; 87070; 88311; 93005; 93312; 93320; 93325; 93880; 94002; C1768; J2916; P9016; P9045; P9047